=== PATIENT | female | born 1945 | race Caucasian/White ===

== ENCOUNTER 2024-01-22 13:26 | Outpatient (REF) | payer MEDICARE, SELFPAY ==
[2024-01-22 17:50] LABS: MANUAL DIFF FLAG NO
[2024-01-22 17:58] LABS: Basophils Absolute Auto 0.1 X10*3/uL (0.0-0.2); Basophils Percent Auto 1.2 % (0-2); Eosinophils Absolute Auto 0.2 X10*3/uL (0.0-0.4); Hematocrit 42.9 % (37.0-47.0); Hemoglobin 14.2 g/dl (12.0-16.0); Imm Gran Abs Auto 0.01 X10*3/uL (0.00-0.03); Imm Gran Pct Auto 0.2 % (0.0-0.4); Lymphocytes Percent Auto 20.6 % (20-40); Mean Corpuscular HGB Conc 33.1 g/dl (31.0-35.0); Mean Corpuscular Hemoglobin 30.2 pg (27.0-33.0); Mean Corpuscular Volume 91.3 fL (80.0-98.0); Mean Platelet Volume 9.8 fL (9.4-12.3); Monocytes Absolute Auto 0.6 X10*3/uL (0.1-1.2); Monocytes Percent Auto 11.5 % (2-11); Neutrophils Absolute Auto 3.2 x10*3/uL (2.0-8.3); Neutrophils Percent Auto 63.5 % (45-73); Platelet Count 318 X10*3/uL (160-400); Red Cell Distribution Width 13.2 % (11.0-16.0)
[2024-01-22 18:14] LABS: Alanine Aminotransferase 23 U/L (0-31); Albumin Level 3.9 g/dL (3.5-5.0); Alkaline Phosphatase 57 U/L (39-117); Anion Gap 12 (12-20); Aspartate Amino Transferase 28 U/L (5-31); Bilirubin Total 0.6 mg/dL (0.0-1.0); Blood Urea Nitrogen 21 mg/dL (9-16); Calcium 9.3 mg/dL (8.4-10.2); Carbon Dioxide 26 mmol/L (22-29); Chloride 106 mmol/L (96-108); Estimated Glomerular Filt Rate > 60; Glucose Random 80 mg/dL (60-115); Iron 70 mcg/dL (30-160); Percent Iron Saturation 33 % (15-50); Potassium 4.1 mmol/L (3.3-5.1); Sodium 140 mmol/L (135-145); Total Iron Binding Capacity 210 mcg/dL (228-428); Total Protein 6.4 g/dL (6.5-8.0); Unsaturated Iron Binding 140 ug/dL
[2024-01-22 18:29] LABS: Ferritin 133 ng/mL (10-250); Thyroid Stimulating Hormone 1.37 uIU/mL (0.32-4.0); Vitamin D 25-OH Total 48.4 ng/mL (>30)
[2024-01-22 18:42] LABS: Folate 9.3 ng/mL (> or = 4.0); Vitamin B12 1450 pg/mL (200-900)
== END 2024-01-22 13:27 | disposition home or self-care (01) ==
LOC: HO.WFDLDS 13:26
PROVIDERS: Visit Provider Internal Medicine
DX: E77.8 Other disorders of glycoprotein metabolism (principal); E56.9 Vitamin deficiency, unspecified; L65.9 Nonscarring hair loss, unspecified
CPT/HCPCS: 36415; 80053; 82306; 82607; 82728; 82746; 83540; 84443; 85025

== ENCOUNTER → 2024-05-05 09:50 | Outpatient (BNVA) | payer MEDICARE, SELFPAY | PROVIDERS: PCP Internal Medicine; Visit Provider Internal Medicine | DX: Z00.00 Encounter for general adult medical examination without abnormal findings (principal) | CPT/HCPCS: 96127; 99212 ==

== ENCOUNTER 2025-05-11 14:07 | Outpatient (AMB) | payer MEDICARE, SELFPAY ==
--- OUTSIDE RECORDS SUMMARY | 2024-10-17 07:35 | XMS_ITS | Continuity of Care Document ---
Author Organization [facility] Address [address] [facility] [address] [place] [address] Care Team Providers Care Web Content Editor Name Role Phone Samir Kingston OD Unavailable Unavailable Allergies, Adverse Reactions, Alerts Substance Reaction Status Criticality No Known Allergies Active No Inform ation Medications Medication Instructions Dosage Effective Dates (start - stop) Status Comments montelukast 10 mg tablet take 1 tablet by oral route every day in the evening 10 MG - Active Flonase Allergy Relief 50 mcg/actuation nasal spray,suspension spray 1 - 2 spray by intranasal route every day in each nostril as needed 50-100 MCG - Active omeprazole 40 mg capsule,delayed release take 1 capsule by oral route every day before a meal 40 MG - Active butalbital-acetaminop hen-caffeine 50 mg-300 mg-40 mg capsule take 1 - 2 capsule by oral route every 4 hours as needed not to exceed 6 capsules per 24hrs 1.00-2.00 capsule - Active CoQ-10 100 mg capsule take 1 capsule by oral route every day 1 capsule - Active dicyclomine 20 mg tablet take 1 tablet by oral route 2 times every day 20 MG - Active estradiol 0.025 mg/24 hr semiweekly transdermal patch apply 1 patch by transdermal route 2 times every week cyclically, 3 weeks on and 1 week off 1.00 patch - Active Sivan-C with Bioflavonoids 1,000 mg-200 mg tablet - Active Tumersaid 100 mg-100 mg-100 mg-125 mg tablet - Active magnesium 250 mg tablet take 1 tablet by oral route 2 times every day 1 tablet - Active Lipo-Flavonoid Plus 200 mg-100 mg tablet - Active Probiotic 20 billion cell sprinkle capsule - Active ondansetron HCl 4 mg/5 mL oral solution take 10 milliliter by oral route 2 times every day 8 MG - Active Vitamin D3 25 mcg (1,000 unit) tablet - Active Vitamin B-12 1,000 mcg/mL oral drops - Active Citracal Regular 250 mg calcium-200 unit tablet - Active biotin 10,000 mcg disintegrating tablet - Active atorvastatin 40 mg tablet take 1 tablet by oral route every day 40 MG - Active Procedures Procedure Date Compre oph exam est pt / REFRACTION Visual Test Ophth Serv: Med Exam; Comp Est 24 REFRACTION Ophth Serv: Med Exam; Comp Est 23 REFRACTION Visual [facility] [place] No MD [facility] [place] Ophth Serv: Med Exam; Comp Est REFRACTION Postop F/u Visit [facility] 1 No Charge REFRACTION Same Day PostOp Visit CAT[facility]ACT SURG W/IOL, 1 STAGE Anes- Eye; Lens Surg FACILITY No Event On Discharge IOL Master Offic/outpt E&m Estab Mod-wv 2 21 Postop F/u Visit [facility] 1 No Charge REFRACTION Same Day PostOp Visit FACILITY No Event On Discharge Determ Refractive State Post Op 021 CATARACT SURG W/IOL, 1 STAGE Anes- Eye; Lens Surg Surgery Pre-Payment Offic/outpt E&m Estab Minor 10 21 Offic/outpt E&m Estab Mod-hi 2 21 REFRACTION IOL Master Ophth Serv: Med Exam; Comp New 20 IOL Master REFRACTION Advance Directives Directive Yes / No Effective Date File Name No Information Encounters Encounter Description Practice Location Reason(s) For Visit Diagnoses Date Provider Providers Copied on Encounter [facility] [address], [place], [address] [place] [address] [facility] Blurry vision (chief complaint) PresbyopiaPresenc e of intraocular lensPosterior vitreous detachment of both eyesDry eye syndrome of bilateral lacrimal glands 5 Goodyear OD Samir. [facility] [address], [place], [place], [id number] , . tel:[phone] Referring Provider: Samir Turner, [address] [place] [address], [place], [address] . tel:[phone] [facility] [place] [address], [place], [place], [id number], [facility] Blurry Vision (chief complaint) PresbyopiaPresenc e of intraocular lensPosterior vitreous detachment of both eyesDry eye syndrome of bilateral lacrimal glands 4 Vashti OD Samir. [facility] [address] [address], [place], [place], [id number] , . tel:[phone] Referring Provider: Samir Turner, [facility] [address] [address], [place], [address] . tel:[phone] [facility] [place] [address], [place], [place], [id number], [facility] blurry vision (chief complaint) Dry eye syndrome of bilateral lacrimal glandsPosterior vitreous detachment of both eyesPresence of intraocular lensPresbyopia 3 Goodyear OD Samir. [facility] [address] [address], [place], [place], [id number] , . tel:[phone] Referring Provider: Samir Turner, [address] [facility] [address], [place], [address] . tel:[phone] [facility] [place] [address], [place], [address] [place] [address], [facility] [place] Dermatochalasis of right upper eyelidDermatochal asis of left upper eyelid Aug- 2 Goodyear OD Samir. [facility] [address], [place], [address] [place] [address] , . tel: [phone] Referring Provider: Samir Kingston OD A, [facility] [address], [place], [address] [place] [address] . tel:[phone] [facility] [place] [facility], [facility] [address] [address], [place], [address] [place] [address], [facility] [place] Dermatochalasis of left upper eyelidDermatochal asis of right upper eyelid 2 Goodyear OD Samir. [facility] [address], [place], [address] [place] [address]. tel: [phone] Referring Provider: Samir Kingston OD A, [facility] [address], [place], [address] [place] [address] . tel:[phone] [facility] [place], [address] [place] [address], [place], [id number], [facility] flashes of light (chief complaint) Posterior vitreous detachment of both eyesPresence of intraocular lensPresbyopiaDer matochalasis of right upper eyelidDermatochal asis of left upper eyelid 2 Goodyear OD Samir. [address] [place] [address] [address], [place], [address] [place] [address] , . tel: [phone] Referring Provider: Kailey Morocho, [facility] [address], [place], [address] . tel:[phone] [facility] [address], [place], [address] [place] [address], [facility] Final Post op (chief complaint) Presence of intraocular lensPresbyopiaDer matochalasis of both upper eyelids 1 Vashti OD Samir. [facility] [address], [place], [address] [place] [address] , . tel:[phone] Referring Provider: Kailey Morocho, [address], [place], [address] [place] [address] . tel:[phone] [facility] [place], [address], [place], [address] [place] [address], [place] [facility] [place] [place] Presence of intraocular lens Sep- 1 Vashti OD Samir. [address], [place], [address] [place] [address] , . tel:[phone] [facility] [place], [address], [place], [address] [place] [address], tel:[phone] [facility] No Information 1 [facility] [place]. [address], [place], [address] [place] [address] , . tel:[phone] Referring Provider: Kailey Morocho, [address], [place], [address] [place] [address] . tel:[phone] [facility] [place], [address], [place], [address] [place] [address], [facility] No Information 1 Maite Bonner. [address], [place], [address] [place] [address] , . tel:[phone] Referring Provider: Kailey Morocho, [address], [place], [address] [place] [address] . tel:[phone] [facility] [place], [address], [place], [address] [place] [address], [place] [facility] [place] [place] No Information 1 Maite Bonner. [address], [place], [address] [place] [address] , . tel:[phone] Referring Provider: Kailey Morocho, [address], [place], [address] [place] [address] . tel:[phone] Offic/outpt E&m Estab Mod-hi 2 [facility] [place], [address] [place] [address] [address], [place], [address] [place] [address] [facility] Glare (chief complaint) Post Op (chief complaint) Nuclear sclerosis cataract of right eyePresence of intraocular lensPresbyopia Apr-2 1 Goodyear OD Samir. [address] [place] [address] [address], [place], [address] [place] [address]. tel:[phone] Referring Provider: Kailey Morocho, [facility] [address] [facility] [address], [place], [address] [place] [address] . tel:[phone] [facility] [place] [address], [place], [address] [place] [address], [facility] [place] Presence of intraocular lens Apr-0 1 Vashti OD Samir. [address] [place] [address] [address], [place], [address] [place] [address]. tel:[phone] [facility] [address], [place], [address] [place] [address], tel:[phone] [facility] No Information [address] [facility] [place]. [facility], [facility] [address], [place], [address] [place] [address]. tel:[phone] Referring Provider: Kailey Morocho, [address] [place] [address] [address], [place], [address] [place] [address] . tel:[phone] [facility] [place] [address] [facility] [address], [place], [address] [place] [address] [facility] [place] No Information 0 1 Maite Bonner. [address] [place] [address] [address], [place], [address] [place] [address]. tel:[phone] Referring Provider: Kailey Morocho, [address] [place] [address] [address], [place], [address] [place] [address] . tel:[phone] [facility] [place] [address] [facility] [address], [place], [address] [place] [address], [facility] No Information Apr-0 1 Maite Bonner. [address], [place], [address] [place] [address] , . tel:[phone] Referring Provider: Kailey Morocho, [facility] [address], [place], [address] [place] [address] . tel:[phone] [facility] [place], [address] [facility] [address], [place], [address] [place] [address], [address] [facility] No Information Apr-0 1 Maite Bonner. [facility] [address] [facility] [address], [place], [address] [place] [address] , . tel:[phone] Referring Provider: Kailey Morocho, [address] [place] [address] , [place], [address] [place] [address] . tel:[phone] Offic/outpt E&m Estab Minor [facility], [facility] , [place], [address] [place] [address], [facility] [place] Pre-Op Clearance (chief complaint) Migraine HAs (chief complaint) GERD (chief complaint) Hyperlipid emia (chief complaint) Encounter for other preprocedural examinationAge-re lated nuclear cataract, bilateral Apr-0 1 Lesley Gould. [address], [place], [address] [place] [address] , . tel:[phone] Referring Provider: Kailey Morocho, [facility] [address], [place], [address] [place] [address] . tel:[phone] Offic/outpt E&m Estab Mod-hi [address] [place] [address] [facility] , [place], [address] [place] [address] [facility] Decreased Vision (chief complaint) Glare (chief complaint) Age-related nuclear cataract, bilateralPresbyop ia Mar-2 1 Maite Bonner. [facility] [address], [place], [place], [id number] , . tel:[phone] Referring Provider: Kailey Morocho, [address], [place], [address] . tel:[phone] [facility] [place], [address], [place], [id number], [facility] glare (chief complaint) blurred vision (chief complaint) Age-related nuclear cataract, bilateralPresbyop ia Maite Bonner. [address], [place], [place], [id number] , . tel:[phone] Referring Provider: Kailey Morocho, [address] [facility], [place], [address] . tel:[phone] Family History Family Member Type Diagnosis Age At Onset Mother Problem (finding) glaucoma Brother Problem (finding) degenerative disorder o f macula Payers Payer name Insurance type Covered alliance party ID Authoriza tion(s) Medicare [id number] BCBS Commercial [id number] Social History Type Description Quantity Date Captured Comments Alcohol Use Details Caffeine Use Details Unknown Tobacco Use Status Current non-smoker Smoking Status Never smoker Non-Smoking Tobacco Use Details : No Details Available : No Details Available Sex Female Chief Complaint And Reason For Visit From encounter dated '10/17/2024 12:35'. Blurry vision (chief complaint). Description: The patient presents for blurry vision in both eyes over the past year. Patient states that she finds herself using her readers more often to see fine print. Reason For Referral Reason For Referral No Information Plan Of Treatment Date Type Action Status Referral Ordered: Candi Wade -Family Medicine (related to Posterior vitreous detachment of both eyes) ordered Referral Ordered: Candi Wade -Family Medicine (related to Dry eye syndrome of bilateral lacrimal glands) ordered Referral Referred To: Candi Wade [address] [place], [address] [phone] Ordered: Referrals: Family Medicine. Candi Wade. Assume [...] out on the green. Functional Status Date Functional Assessmen t No Information Instructions Date Instruction Additional Infor evi 1 Year for Complete Dilated Exam Related to Posterior vitreous detachment of both eyes Impression/Plan Related to Poste rior vitreous detachment of both eyes Impression/Plan Related to Dry e ye syndrome of bilateral lacrimal glands Impression/Plan Related to Prese nce of intraocular lens Impression/Plan Related to Presb yopia 1 year for complete dilated exam Related to Dry eye syndrome of bilateral lacrimal glands Impression/Plan Related to Dry e ye syndrome of bilateral lacrimal glands Impression/Plan Related to Prese nce of intraocular lens Impression/Plan Related to Presb yopia Impression/Plan Related to Poste rior vitreous detachment of both eyes Impression/Plan Related to Dry e ye syndrome of bilateral lacrimal glands Impression/Plan Related to Presb yopia Impression/Plan Related to Prese nce of intraocular lens Impression/Plan Related to Poste rior vitreous detachment of both eyes Return to clinic in [address] Samir Kingston OD for Annual dilated fundus exam Related to Presence of intraocular lens Impression/Plan Related to Poste rior vitreous detachment of both eyes Impression/Plan 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 Related to Nucle ar sclerosis cataract of right eye Impression/Plan Related to Presb yopia Impression/Plan Related to Prese nce of intraocular lens Impression/Plan Related to Nucle ar sclerosis cataract of right eye cataract sx OS Related to Age-r elated nuclear cataract, bilateral Impression/Plan Related to Presb yopia Impression/Plan Related to Age-r elated nuclear cataract, bilateral Impression/Plan Related to Presb yopia Impression/Plan Related to Age-r elated nuclear cataract, bilateral Assessments Type Assessment Date assessment Presbyopia impression Refraction obtained assessment Presence of intraocular lens October impression Status: Stable. Centered bilater al assessment Posterior vitreous detachment of both eyes impression Status: Stable. No Holes, No Tea rs bilateral assessment Dry eye syndrome of bilateral la crimal glands impression Status: Stable Patient Care Teams Name Effective Dates (start - stop) Status Members No Information
[2025-05-11 14:19] VITALS: BP 118/66; PULSE 73; RESP 14; O2SAT 97; BMI 26.2
--- NOTE | 2025-05-11 14:19 | A.OFFPC_ITS ---
Vital Signs 05/11/25 14:19 Height 5 ft 1.81 in Weight 142 lb 2 oz BMI 26.2 BP 118/66 Blood Pressure Location Rt brachial Position Sitting Respiration 14 Pulse 73 Pulse Source Pulse Oximeter Pulse Oximetry (%) 97 Oxygen Delivery Method Room Air Intake Visit Reasons: PE Intake Note: Follow up Frozen Pie Maker Required: No Allergies No Known Allergies Allergy (Verified 05/11/25 14:22) Tobacco use date assessed: 05/11/25 Fall risk assessment: No Falls in past year Last assessed Fall Risk: 05/11/25 Dental Screening Dental Screen Date: 05/11/25 Did you have a dental visit in the last 12 months?: Yes Did you have a dental problem in the last 6 months where you did not have access to dental care?: No Was dental information given to patient?: Patient has dentist HPI HPI Comments History of Present Illness Details 79 year old female with a past medical h istory of hyperlipidemia, GERD, OA presenting for follow up CV: On lipitor 40mg daily. Intermittent swelling in the legs and orthopnea. She feels like she is retaining water. She eats a low salt diet. GI. Stable on omeprazole 40mg daily OA: [facility] both hands. She has had physical therapy in the past. She has been on nabumetone in the past. Follows with chiropractor. Has a hand specialist in [place]. Headaches are stable on fioricet Preventive Breast MRI 2019 Mammogram-2021 Colonoscopy 2018, Colonoscopy/EGD-Feb 2025 Hysterectomy 1986. On estrace, gurwinder BEARD CONSTITUTIONAL: Denies weight loss, fever and chills. HEENT: Denies changes in vision and hearing. RESPIRATORY: Denies SOB and cough. CV: Denies palpitations and CP GI: Denies abdominal pain, nausea, vomiting and diarrhea. : Denies dysuria and urinary frequency. MSK: Denies new myalgia and joint pain. SKIN: Denies rash and pruritus. NEUROLOGICAL: Denies headache PSYCHIATRIC: Denies recent changes in mood. PHYSICAL EXAM: GENERAL: Alert and oriented x 3. NAD EYES: EOMI. Anicteric. HENT: Moist mucous membranes. No scleral icterus. No cervical lymphadenopathy. LUNGS: Clear to auscultation bilaterally. CARDIOVASCULAR: Regular rate and rhythm. No murmur. No JVD. ABDOMEN: Soft, non-tender +bs EXTREMITIES: No edema. Non-tender. SKIN: No rashes or lesions. Warm. NEUROLOGIC: No focal neurological deficits. CN II-XII grossly intact PSYCHIATRIC: Cooperative. Appropriate mood and affect [facility] Family History (Updated 05/05/24 @ 10:42 by Madonna Hazel CMA) Brother HTN (hypertension) Mother Osteoporosis Social History (Updated 05/05/24 @ 10:43 by Madonna Hazel CMA) Housing: House Alcohol intake: current Patient Tobacco Use Status: Never used Tobacco e-Cigarette/Vaping Use: Never Used Second Hand Smoke Exposure: No service: No Current occupational status: retired Cognitive needs: No Hearing needs: No Vision needs: No Questionnaire PHQ-9 Over the last 2 weeks, how often have you been bothered by any of the following problems? 1. Little interest or pleasure in doing things: not at all 2. Feeling down, depressed, or hopeless: not at all 3. Trouble falling or staying asleep, or sleeping too much: not at all 4. Feeling tired or having little energy: not at all 5. Poor appetite or overeating: not at all 6. Feeling bad about yourself - or that you are a failure or have let yourself or your family down: not at all 7. Trouble concentrating on things, such as reading the newspaper or watching television: not at all 8. Moving or speaking so slowly that other people could have noticed. Or the opposite - being so fidgety or restless that you have been moving around a lot more than usual: not at all 9. Thoughts that you would be better off or of hurting yourself in some way: not at all Total score: 0 Depression Screening Interpretation: Negative Depression Screening Done: Yes 90200 - PHQ-9 Billing: Yes Source: Developed by Drs. Luis Ron, Cayla Devine, Ramos Patel and colleagues, with an educational marcelle from [employer]. Thrive Questionnaire Date Thrive assessed: 05/05/24 I am a: Patient What is your living situation today?: I have a steady place to live Within the past 12 months, did the food you bought not last and you didn't have the money to get more?: Never true Within the past 12 months, did you worry whether your food would run out before you got money to buy more?: Never true Do you have trouble paying for medicines?: No Do you have trouble getting transportation to medical appointments?: No Do you have trouble paying your heating and electricity bill?: No Do you have trouble taking care of your child, family member or friend?: No Do you have trouble with day-to-day activities such as bathing, preparing meals, shopping, managing finances, etc.?: No Are you currently unemployed and looking for a job?: No Are you interested in more education?: No Please select the resources that you would like help with: None Currently or been in a relationship where the following occur: No concerns reported THRIVE Score: 0 AUDIT C Alcohol Use Questionnaire (AUDIT-C) 1. How often do you have a drink containing alcohol?: Monthly or less 2. How many drinks containing alcohol do you have on a typical day when you are drinking?: 1 or 2 3. How often do you have six or more drinks on one occasion?: Never Total Score: 1 KENDRICK-7 AMB Questionnaire KENDRICK-7 Date KENDRICK - 7 assessed: 05/05/24 Feeling nervous, anxious, or on edge: 0 = Not at all Not being able to stop or control worryin = Not at all Worrying too much about different things: 0 = Not at all Trouble relaxin = Not at all Being so restless that it is hard to sit still: 0 = Not at all Becoming easily annoyed or irritable: 0 = Not at all Feeling afraid as if something awful might happen: 0 = Not at all Total KENDRICK-7 score (0-4 normal; 5-9 mild; 10-14 moderate; 15-21 severe): 0 Source: Developed by Drs. Luis Ron, Cayla Devine, Ramos Patel and colleagues, with an educational marcelle from [employer]. Physical exam (Primary Care) Vital Signs: Last Vital Signs Pulse 73 05/11/25 14:19 Resp 14 05/11/25 14:19 BP 118/66 05/11/25 14:19 Pulse Ox 97 05/11/25 14:19 Oxygen Delivery Method Room Air 05/11/25 14:19 BMI result Body Mass Index 26.2 Tobacco/Smoking Status: Tobacco use Status Tobacco use date assessed 05/11/25 05/11/25 14:26 Patient Tobacco Use Status Never used Tobacco 05/11/25 14:26 e-Cigarette/Vaping Use Never Used 05/11/25 14:26 PHQ-9: PHQ-9 Score PHQ-9: Total score 0 05/11/25 14:31 Depression Screening Interpretation: Negative Thrive Assessment: Date of Thrive Assessment Date Thrive assessed 05/05/24 05/11/25 14:26 Currently or been in a relationship where the following occur: No concerns reported Coding Level of Care Code Est Pt Level 4 (48672) Diagnoses Edema, unspecified type R60.9 Edema type: unspecified Orthopnea R06.01 Other headache syndrome G44.89 Headache type: other headache syndrome Primary osteoarthritis involving multiple joints M15.0 Osteoarthritis type: primary Additional Codes PHQ-9 - 63427 - PHQ-9 Billing: Yes ([id number]) Assessment & Plan Assessment & Plan (1) Edema: Code(s): R60.9 - Edema, unspecified Category: Medical Qualifiers: Edema type: unspecified Qualified Code(s): R60.9 - Edema, unspecified (2) Orthopnea: Code(s): R06.01 - Orthopnea Category: Medical (3) Headache: Code(s): R51.9 - Headache, unspecified Category: Medical Qualifiers: Headache type: other headache syndrome Qualified Code(s): G44.89 - Other headache syndrome (4) Osteoarthritis, multiple sites: Code(s): M15.9 - Polyosteoarthritis, unspecified Category: Medical Qualifiers: Osteoarthritis type: primary Qualified Code(s): M15.0 - Primary generalized (osteo)arthritis Plan LE edema, orthopnea. Seems euvolemic today. Furosemide x 5 days then as needed. Echo ordered Monitor lipids Headaches are stable Arthritis is stable Orders: Orders CA echo transthoracic complete 05/11/25 R06.01 - Orthopnea, R60.9 - Edema, unspecified Medications: New furosemide (Lasix) Take 1 tab oral once daily for 5 days then as needed for swelling 20 mg PO DAILY PRN 90 tabs 1RF edema
--- OUTSIDE RECORDS SUMMARY | 2025-05-11 17:31 | XMS_ITS ---
Author Name [facility] Organization Unknown Care Team Organization Name Specialty Phone Email Start Date End [facility] GEETA CONNORS Primary Care 11/09/2021 022
--- OUTSIDE RECORDS SUMMARY | 2025-05-11 17:31 | XMS_ITS | Clinical Summary ---
Author Organization [facility] Address [address] [place] [address] Care Team Providers Care Barge Pilot Name Role Phone Fatimah Lo MD Primary Care Provider [phone] Medications Medication Sig Dispensed Refills Start Date End Date Status atorvastatin (LIPITOR) tablet 40 mg Take 40 mg by mouth daily. 0 Active Biotin (BIOTIN 5000) 5 MG CAPS Take by mouth. 0 Active butalbital-acetaminoph en-caffeine (FIORICET, ESGIC) 50-325-40 MG per tablet Take 1 tablet by mouth every 4 (four) hours as needed for pain. 0 Active fluticasone (FLONASE) 50 MCG/ACT nasal spray spray/apply 1 spray in each nostril daily. 0 Active omeprazole (PRILOSEC) 40 MG capsule Take 40 mg by mouth daily. 0 Active Ascorbic Acid (VITAMIN C) 1000 MG tablet Take 1,000 mg by mouth daily. 0 Active Active Problems Problem Noted Date Diagnosed Date Abnormal PET of right lung 01/23/2018 Anxiety 01/23/2018 Fibrocystic disease of breast, right 01/23/2018 Gastroesophageal reflux disease 01/23/2018 Mixed hyperlipidemia 01/23/2018 Weight loss 01/23/2018 Atypical migraine 01/23/2018 Social History Tobacco Use Types Packs/Day Years Used Date Smoking Tobacco: Never Smokeless Tobacco: Former Alcohol Use Standard Drinks/Week Comments Yes 0 (1 standard drink = 0.6 oz pur e alcohol) ocassionally Sex and Gender Information Value Date Recorded Sex Assigned at Not on file Gender Identity Not on file Sexual Orientation Not on file Last Filed Vital Signs Vital Sign Reading Time Taken Comments Blood Pressure 109/32 05/29/2018 9:23 AM EST Pulse 69 05/29/2018 9:23 AM EST Temperature 36.8 C (98.3 F) 05/29/2018 9:23 AM EST Respiratory Rate - - Oxygen Saturation - - Inhaled Oxygen Concentration - - Weight 62.6 kg (138 lb) 05/29/2018 9:23 AM EST Height 156.5 cm (5' 1.6 ) 05/29/2018 9:23 AM EST Body Mass Index 25.57 05/29/2018 9:23 AM EST Plan of Treatment Health Maintenance Due Date Last Done Comments COVID-19 Vaccine (#1) 1945 Depression Screening 1955 Preventative Health Evaluation 1961 DTap / Tdap / Td (1 - Tdap) 1962 Shingrix-Zoster Vaccine (1 of 2) 1993 Fall Risk Assessment 2008 Osteoporosis Screening (DEXA Scan) 2008 Pneumococcal Vaccine (1 of 1 - PCV) 2008 RSV Adult > 60+ Yrs or Pregn ant (1 - 1-dose 75+ series) 2018 Influenza Vaccine (#1) 2025 Hepatitis B Vaccines Aged Out No long er eligible based on patient's age to complete this topic RSV Ped < 20 months Aged Out No longe r eligible based on patient's age to complete this topic Care Teams Barge Pilot Relationship Specialty Start Date End Date Fatimah Lo MD [address] [place] [address] PCP - General Family Medicine 01/17/18
--- OUTSIDE RECORDS SUMMARY | 2025-05-11 17:31 | XMS_ITS | Clinical Summary ---
Author Organization [facility] Address [address] [place] [id number] Care Team Providers Care Home Teaching [employer] 7 [employer] 8 Teacher Name Role Phone Fatimah Lo MD Primary Care Provider [phone] Kayla Wilkins MD Unavailable [phone] Medications atorvastatin (LIPITOR) 40 MG tablet Take 40 mg by mouth. Active OMEprazole (PriLOSEC) 40 MG capsule 10/02/2020 Active Biotin 5 MG Cap Take by mouth. Active butalbital-aceta minophen-caffein e (FioriCET, ESGIC) 50-325-40 mg tablet Take 1 tablet by mouth every 4 (four) hours as needed. Active ascorbic acid (VITAMIN C) 1000 MG tablet Take 1,000 mg by mouth. Active estradiol (CLIMARA) 0.05 MG/24HR patch Place 1 patch on the skin once a week. Active Active Problems No known active problems Family History Medical History Relation Name Comments Cancer Brother Cancer Father Heart disease Sister Relation Name Status Comments Brother Father Sister Social History Tobacco Use Types Packs/Day Years Used Date Smoking Tobacco: Never Assessed Alcohol Use Standard Drinks/Week Comments Yes 0 (1 standard drink = 0.6 oz pur e alcohol) rare Comments Unknown Sex and Gender Information Value Date Recorded Sex Assigned at Not on file Legal Sex Female 2:52 PM EDT Gender Identity Female 01/03/2021 9:55 PM EDT Sexual Orientation Heterosexual (straight) 01/03 9:55 PM EDT Last Filed Vital Signs Vital Sign Reading Time Taken Comments Blood Pressure 124/47 11/18/2020 2:39 PM EDT Pulse 66 11/18/2020 2:39 PM EDT Temperature - - Respiratory Rate - - Oxygen Saturation - - Inhaled Oxygen Concentration - - Weight 61.2 kg (135 lb) 11/18/2020 2:39 PM EDT Height 158.8 cm (5' 2.5 ) 11/18/2020 2:39 PM EDT Body Mass Index 24.3 11/18/2020 2:39 PM EDT Plan of Treatment Health Maintenance Due Date Last Done Comments Advance Care Planning 1945 DTaP/Tdap/Td Vaccines (1 - Tdap) 1962 Pneumococcal Vaccines 50+ (1 of 1 - PCV) 1993 Zoster (Shingles) Vaccine (1 of 2) 1993 DXA Bone Density (Females,Ag es 65 and older) 2008 RSV Vaccine 50 years and old er and Patients (1 - 1-dose 75+ series) 2018 Influenza Vaccine 01/09/2025 COVID-19 Vaccine ( - 2023-2 5 season) 2025 Hepatitis B Vaccines Aged Out No long er eligible based on patient's age to complete this topic Insurance MEDICARE PART A & B [facility] on file [employer] Care Teams Home Teaching Grades 7 And 8 Teacher Relationship Specialty Start Date End Date Fatimah Lo MD [address] [place] [address] PCP - General 02/20/20 Kayla Wilkins MD [address] [facility] [address] [place] [address] Referring Provider 02/20/20
== END 2025-05-11 14:50 | disposition home or self-care (01) ==
LOC: HO.HMCFM 14:07
PROVIDERS: PCP Internal Medicine; Visit Provider Internal Medicine
DX: R60.9 Edema, unspecified (principal); R06.01 Orthopnea; G44.89 Other headache syndrome; M15.0 Primary generalized (osteo)arthritis

== ENCOUNTER → 2025-05-11 14:07 | Outpatient (BNVA) | payer MEDICARE, SELFPAY | PROVIDERS: PCP Internal Medicine; Visit Provider Internal Medicine | DX: R60.9 Edema, unspecified (principal); R06.01 Orthopnea; G44.89 Other headache syndrome; M15.0 Primary generalized (osteo)arthritis; K21.9 Gastro-esophageal reflux disease without esophagitis; Z79.899 Other long term (current) drug therapy; Z13.31 Encounter for screening for depression | CPT/HCPCS: 96127; 99212 ==

== ENCOUNTER → 2025-05-15 11:03 | Outpatient (REF) | payer MEDICARE, SELFPAY ==
--- NOTE | 2025-05-15 11:06 | CA_ITS ---
Transthoracic Echocardiogram Patient (Last, First, Middle): Cayla Heck, Gender: Female Date of : 1945 Age: 80 Procedure Date: 05/15/2025 Procedure Type: Transthoracic Echocardiogram Location: OP Height: 157.48 cm Weight: 62.14 kg BSA: 1.63 m2 Heart Rate: bpm BP: 124 / 72 mmHg Director Of Casino Marketing: TO Referring MD: Marianne Mariano MD Symptoms: R06.01 - Orthopnea Study Quality: Adequate ECG Rhythm: Sinus Conclusions: - The left ventricular systolic function is normal. The calculated ejection fraction is 65% by biplane method. - The basal inferior segment is akinetic. - No obvious valvular pathology seen on this study. Findings Left Ventricle Normal left ventricular cavity size. There is normal left ventricular wall thickness. The left ventricular systolic function is normal. The calculated ejection fraction is 65% by biplane method. Diastolic function is normal for age. Wall Motion Rest Echo Findings The basal inferior segment is akinetic. Right Ventricle Normal right ventricular cavity size and systolic function. Atria Both atria are normal in size. Aortic Valve There is a normal trileaflet aortic valve. There is no aortic valve stenosis. There is trace (trivial) aortic valve regurgitation. Mitral Valve The mitral valve appears normal. There is trace mitral valve regurgitation. There is no mitral valve stenosis. Pulmonic Valve There is trace pulmonic valve regurgitation. Tricuspid Valve Normal tricuspid valve structure. There is mild tricuspid valve regurgitation. There is no evidence of pulmonary hypertension. Great Vessels The asc aorta and aortic arch are normal in size. Venous The inferior vena cava is normal in size and collapses greater than 50% with inspiration. Pericardium/Pleural There is no evidence of pericardial effusion. Prior Study Comparison No prior study available for comparison. Recommendations, Care & Conclusions No obvious valvular pathology seen on this study. Measurements 2D Linear Measurements IVSd: 0.80 0.6-0.9/0.6-1.0 cm LVIDd: 3.92 3.9-5.3/4.2-5.9 cm LVIDd Index: 2.40 2.4-3.2/2.2-3.1 cm/m2 LVIDs: 2.52 2.0-3.6 cm LVPWd: 0.71 0.7-1.1 cm LA Diam: 2.90 2.7-3.8/3.0-4.0 cm LAIDs Index: 1.78 1.5-2.3 cm/m2 LV Mass: 104.14 67-162/88-224 g LV Mass Index: 63.89 43-95/49-115 g/m2 LVOT Diam: 2.00 3.0+(-)1.3 cm 2D Systolic Function EF 4C: 63.60 >55% EF 2C: 65.50 >55% EF BiP: 64.60 >55% Mitral Valve MV Pk E: 0.57 MV PK A: 0.57 MV Decel Time: 204.00 E/A: 1.00 E'Lateral: 7.40 E'Medial: 5.55 E/E' Med: 10.30 E/E' Lat: 7.80 PHT: 60.00 MVA PHT: 3.67 Decel [place]: 2.81 Aortic Valve AoV Pk Dev[place]: 1.25 AoV Mn Devonte: 0.87 AoV VTI: 0.27 AoV Pk Grad: 6.00 Aov Mn Grad: 3.00 VANE Cont.VTI: 2.94 AI Pk Dev[place]: 3.87 AI [place]: 1.94 LVOT LVOT Pk [place]: 1.02 LVOT Mn [place]onte: 0.70 LVOT VTI: 0.25 LVOT Pk Grad: 4.00 LVOT Mn Grad: 2.00 LVOT Diam: 2.00 LVOT Area: 3.14 Diastolic Function MV Pk E: 0.57 MV Pk A: 0.57 E/A: 1.00 E'Medial: 5.55 E/E' Med: 10.30 E' Laterial: 7.40 E/E' Lat: 7.80 Right Ventricle TAPSE (mm): 20.60 TVS' Dev[place]: 11.40 Tricuspid Valve TR Pk Devonte: 2.28 TR Pk Grad: 21.00 RA Press: 3.00 RVSP: 24.00 Great Vessels Aorta Sinus of Valsalva: 3.52 2.0-3.[address] [place]: 2.81 1.7-3.4 cm Ao Asc: 3.50 2.1-3.4 cm Ao Arch: 2.70 Updated in Other Vendor System with Status of Final Baldo Ledesma MD electronically signed on 05/16/2025 1:05:40 PM with status of Final
== END ==
LOC: HO.CARD 11:03
PROVIDERS: PCP Internal Medicine; Visit Provider Internal Medicine
DX: R06.01 Orthopnea (principal); R60.9 Edema, unspecified
CPT/HCPCS: 93306

== ENCOUNTER → 2025-05-15 11:06 | Outpatient (BNV) | payer MEDICARE, SELFPAY | PROVIDERS: PCP Internal Medicine; Visit Provider Internal Medicine | DX: I51.89 Other ill-defined heart diseases (principal); I36.1 Nonrheumatic tricuspid (valve) insufficiency | CPT/HCPCS: 93306 ==

== ENCOUNTER 2025-05-23 12:55 | Emergency (ER) | payer MEDICARE, SELFPAY ==
--- OUTSIDE RECORDS SUMMARY | 2023-12-03 09:00 | XMS_ITS ---
Author Organization [facility] Address [address] [facility] [address] [place] [address] Care Team Providers Care Record Label Internship Name Role Phone Ulices IRAHETA MD, SIMONE Primary Care Provider Unavailab Kayla Ugarte Unavailable [phone] Allergies Allergen (clinical drug ingredient) Drug/Non Drug Allergy documented on EMR Reaction Allergy Type Onset Date Status Penicillin Yeast Drug Allergy Active Substance with sulfonamide structure and antibacterial mechanism of action (substance) Sulfa Antibiotics Unknown Drug Allergy Active REASON FOR VISIT HR MEDICARE PE Encounters Encounter Location Date Provider Diagnosis [facility] [address] [address] 12/03/2023 Kayla Wilkins Plan Of Treatment Next Appt Details Provider Name:Kayla zeng, 12/28/2025 02:20:00 PM, [address] [place] [address], [facility] [address], [place], [address], Progress Notes * ALLEY SCHWARZDOB:1945 ( 80 yo F)Acc No.[id number]:12/03/2023 PROGRESS NOTES Patient: ALLEY MCGHEE Appointment Provider: Johnny Wilkins M.D. :1945 A ge:78 Y S ex:Female Date:12/03/2023 Address:[address] [place], [place] [id number] Pcp:SIMONE IRAHETA MD Subjective: * Chief Complaints: [...] bleeding, Mammographic heterogeneous density, bilateral breasts. * Practice Manager History: G ravida/ Para 3 /3. S [...] Electronic signature of Salvatore Wilkins MD on 05/23/2025 at 04:45 PM EST Sign off status: Pending * Appointment Provider: Johnny Wilkins M.D. Date: 0 12/03/2023 Generated for Maycol sharma/Lia/eTraheemsmitting on: 07/24/2024 04:45 PM EST
--- OUTSIDE RECORDS SUMMARY | 2024-06-26 12:00 | XMS_ITS ---
Author Organization [facility] Address [address] [place] [address] Care Team Providers Care Process Control Board Operator Name Role Phone MD Candi Cheung Primary Care Provide r [phone] REASON FOR VISIT Awe Social History Sex Assigned At : Social History Observation Description Sex Assigned At Female Encounters Encounter Location Date Provider Diagnosis [facility] [address] [place] [address] 06/26/2024 Candi Graham Plan Of Treatment Next Appt Details Provider Name:Candi quintero, 11/02/2025 01:30:00 PM, [address] [facility] [address], [address], Progress Notes * Cayla HECK DDOB:1945 (80 yo F)Acc No.[id number]:06/26/2024 Progress Notes Patient: Heron Cayla JIMENEZ Provider: Johnny Graham MD :1945 A ge:79 Y S ex:Female Date:06/26/2024 [facility] [address] [facility] Subjective: * Chief Complaints: * 1 . Awe. * Medical History: Objective: * Vitals: Assessment: Plan: * Treatment: Care Plan: * Problems: * Images: Billing Information: * Visit Code: * Procedure Codes: Care Plan Details* * Electronic signature of MD Johnny Graham on 05/23/2025 at 04:45 PM EST Sign off status: Pending * Provider: Johnny Graham MD Date: 0 06/26/2024 Generated for Maycol sharma/Lia/Daysi on: 1 07/24/2024 04:45 PM EST
--- OUTSIDE RECORDS SUMMARY | 2024-06-28 04:00 | XMS_ITS ---
Author Organization [facility] Address [address] [facility] [address] [place] [address] Care Team Providers Care Sewing Machine Bobbin Winder Name Role Phone Eulalio Chavarria Unavailable [phone] Migration, Provider Unavailable Unavailable REASON FOR VISIT EMR-Harvey Encounters Encounter Location Date Provider Diagnosis [facility] [address] [address] 06/28/2024 Provider Migration Plan Of Treatment No Information Progress Notes * CHONG JASMINADALLASDOB:1945 ( 80 yo F)Acc No.[id number]:06/28/2024 Patient: Heron JACQUELINEUlices ALLEY :1945 A ge:79 Y S ex:Female Phone: Address:[address] [place] [address], [phone] Subjective: * Chief Complaints: * E MR-Harvey * * Date:
--- OUTSIDE RECORDS SUMMARY | 2024-06-29 04:00 | XMS_ITS ---
Author Organization [facility] Address [address] [facility] [address] [place] [address] Care Team Providers Care Patternmaker Hand Name Role Phone Eulalio Chavarria Unavailable [phone] Migration, Provider Unavailable Unavailable REASON FOR VISIT EMR-Harvey Encounters Encounter Location Date Provider Diagnosis [facility] [address] [address] 06/29/2024 Provider Migration Plan Of Treatment No Information Progress Notes * CHONG JASMINADALLASDOB:1945 ( 80 yo F)Acc No.[id number]:06/29/2024 Patient: Heron JACQUELINEJASMINA ElenaET :1945 A ge:79 Y S ex:Female Phone: Address:[address] [place] [address], [address] Subjective: * Chief Complaints: * E MR-Harvey * * Date:
--- OUTSIDE RECORDS SUMMARY | 2024-10-17 07:35 | XMS_ITS | Continuity of Care Document ---
Author Organization [facility] Address [address] [facility] [address] [place] [address] Care Team Providers Care Gsa Coordinator Name Role Phone Samir Kingston OD Unavailable [...] For Visit Diagnoses Date Provider Encounter Disposition [address], [id number], [facility] Blurry vision (chief complaint) PresbyopiaPrese nce of intraocular lensPosterior vitreous detachment of both eyesDry eye syndrome of bilateral lacrimal glands 5 Vashti OD Samir. [facility] [address], [id number] , . tel:+ [phone] [address], [id number], [facility] Blurry Vision (chief complaint) PresbyopiaPrese nce of intraocular lensPosterior vitreous detachment of both eyesDry eye syndrome of bilateral lacrimal glands 4 Vashti OD Samir. [address], [id number] , . tel:+ [phone] [address], [id number], [facility] blurry vision (chief complaint) Dry eye syndrome of bilateral lacrimal glandsPosterior vitreous detachment of both eyesPresence of intraocular lensPresbyopia 3 [place] OD Samir. [address], [place], [place], [id number] , [place]. tel: [phone] [facility] [place], [address] [facility] [address], [place], [place], [id number], [place] [facility] [place] [place] Dermatochalasis of right upper eyelidDermatoch alasis of left upper eyelid Aug- 2 [place] OD Samir. [address], [place], [place], [id number] , [place]. tel: [phone] [facility] [place], [address] [place] [address] [address], [place], [place], [id number], [place] [facility] [place] [place] Dermatochalasis of left upper eyelidDermatoch alasis of right upper eyelid Fe 2 Vashti OD Samir. [address], [place], [place], [id number] , [place]. tel: [phone] [facility] [place], [address] [place] [address] [address], [place], [place], [id number], [place] [facility] [place] [facility] flashes of light (chief complaint) Posterior vitreous detachment of both eyesPresence of intraocular lensPresbyopiaD ermatochalasis of right upper eyelidDermatoch alasis of left upper eyelid 2 [place] OD Samir. [address], [place], [place], [id number] , [place]. tel: [phone] [facility] [place], [facility] [address], [place], [place], [id number], [place] [facility] [place] [facility] Final Post op (chief complaint) Presence of intraocular lensPresbyopiaD ermatochalasis of both upper eyelids 1 [place] OD Samir. [address], [place], [place], [id number] , [place]. tel: [phone] [facility] [place], [address] [place] [address] [address], [place], [id number], [place] [facility] [place] [place] Presence of intraocular lens Apr-2 1 Vashti OD Samir. [address], [place], [place], [id number] , [place]. tel: [phone] [facility] [place], [address] [facility] [address], [place], [place], [id number], tel:[phone] [facility] No Information Sep-[address] [facility] [place]. [address], [place], [place], [id number] , [place]. tel: [phone] [facility] [place], [address] [facility] [address], [place], [place], [id number], [facility] No Information Apr-2 1 Maite Bonner. [address], [place], [place], [id number] , . tel: [phone] [facility] [place], [facility] [address], [place], [place], [id number], [place] [facility] [place] [place] No Information Sep-2 1 Maite Bonner. [address], [place], [place], [id number] , . tel: [phone] [facility] [place], [address] [facility] [address], [place], [id number], [place] [facility] [place] [facility] Glare (chief complaint) Post Op (chief complaint) Nuclear sclerosis cataract of right eyePresence of intraocular lensPresbyopia Apr-2 1 Vashti OD Samir. [address], [place], [place], [id number] , [place]. tel: [phone] [facility] [place], [address] [facility] [address], [place], [place], [id number], [place] [facility] [place] [place] Presence of intraocular lens Apr-0 1 [place] OD Samir. [address], [place], [place], [address] , [place]. tel: [phone] [facility] [place], [address] [facility] [address], [place], [place], [id number], [place] tel:[phone] [facility] No Information Apr-0 8- [address] [facility] [place]. [address], [place], [place], [id number] , . tel: [phone] [facility] [place], [address] [facility] [address], [place], [id number], [place] [facility] [place] No Information Apr-0 8 1 Maite Bonner. [address], [place], [place], [address] , . tel: [phone] [facility] [place], [address] [facility] [address], [place], [place], [id number], [facility] No Information Apr-0 8 1 Maite Bonner. [address] [facility] [address], [place], [place], [id number] , . tel: [phone] [facility] [place], [address] [facility] [address], [place], [id number], [place] 01 [employer] No Information Apr-0 1 Maite Bonner. [address] [facility] [address], [place], [place], [address] , [place]. tel: [phone] [facility] [place], [address] [facility] [address], [place], [address] [place] [address], [place] [facility] [place] [place] Pre-Op Clearance (chief complaint) Migraine HAs (chief complaint) GERD (chief complaint) Hyperlipid emia (chief complaint) Encounter for other preprocedural examinationAge- related nuclear cataract, bilateral Apr-0 1 Lesley Gould. [address], [place], [place], [address] , [place]. tel: [phone] [facility] [place], [address] [facility] [address], [place], [place], [id number], [place] [facility] [place] [facility] Decreased Vision (chief complaint) Glare (chief complaint) Age-related nuclear cataract, bilateralPresby opia Mar-2 1 Maite Bonner. [address], [place], [place], [address] , . tel: [phone] [facility] [place], [address], [place], [place], [address], [place] [facility] [place] [facility] glare (chief complaint) blurred vision (chief complaint) Age-related nuclear cataract, bilateralPresby opia Nov-0 0 Maite Bonner. [address], [place], [place], [id number] , [place]. tel: [phone] Family History Family Member Type Diagnosis Age At Onset Mother Problem (finding) glaucoma Brother Problem (finding) degenerative disorder o f macula Payers Payer name Insurance type Identifiers Authorization(s) Com ments Medicare MB new ID: [id number] Name: Coverage Status Eligibility Check on: [id number] nship to Subscriber: selfPayer Address: [address], [place], [address], [employer] Phone: [phone] [employer] Commercial SB590 BL iber ID: [id number] Name: Coverage Status Eligibility Check on: [id number] nship to Subscriber: selfPayer Address: [address], [place], [address], [employer] Phone: [phone] Social History Type Description Quantity Date Captured [...] ordered Referral Referred To: Candi Wade [address] [place], [phone] Ordered: Referrals: Family Medicine. Candi Wade. Assume [...] improved and the colors are much brighter. Pre-Op Clearance Migraine HAs GERD Hyperlipidemia Glare The patient comp lains of glare [...] syndrome of bilateral lacrimal glands Impression/Plan - Vi treous and retina appear [...] escription given. Related to Presbyopia Impression/Plan - Co ntinue to monitor. Related [...] to Presence of intraocular lens Impression/Plan - Co ntinue to monitor on annual basis, sooner as needed. Related to Presence of intraocular lens Impression/Plan - Pa tient to return for belph VF with possible referral to Dr. Castro. Related to Dermatochalasis of left upper eyelid Impression/Plan - Pa tient to return for belph VF with possible referral to Dr. Castro. Related to Dermatochalasis of right upper eyelid Impression/Plan - MRX given. Rel ated to Presbyopia Impression/Plan - Si gns and symptoms of retinal detachment reviewed in detail with patient. Patient instructed to call right away with any change in vision or increase of flashes and/or floaters. Related to Posterior vitreous detachment of both eyes Return in [address] Kingston for complete Related to Presbyopia Impression/Plan Related to Prese nce of intraocular lens Impression/Plan Related to [place] tochalasis of both upper eyelids Impression/Plan Related to Presb yopia As Scheduled. Related to Nucle ar sclerosis [...] to Age-related nuclear cataract, bilateral Impression/Plan - Pa brennan elects to monitor for now as she is leaving for [place] in 2 weeks. Patient would like to come back in June when she is back in [place]. Patient advised to call sooner with any changes in vision. Related to Age-related nuclear cataract, bilateral Impression/Plan - monitor annual ly Related to Presbyopia Assessments Type Assessment Date assessment Presbyopia impression Refraction obtained assessment Presence of intraocular lens October impression Status: Stable. Centered bilater al assessment Posterior vitreous detachment of both eyes impression Status: Stable. No Holes, No Tea rs bilateral assessment Dry eye syndrome of bilateral la crimal glands impression Status: Stable
--- NOTE | ~2025-05-23 | XR_ITS ---
CLINICAL HISTORY: chest pain 1 view chest x-ray. Comparison: None Findings: No consolidation or effusion. Cardiac and mediastinal contours appear unremarkable. Bones unremarkable. Impression: 1. No acute pulmonary disease. This document has been electronically signed by: Joselito Stallworth MD on 05/23/2025 14:10:51
--- NOTE | 2025-05-23 12:57 | ECG_ITS ---
Test Reason : CP Blood Pressure : */* mmHG Vent. Rate : 81 BPM Atrial Rate : 81 BPM P-R Int : 148 ms QRS Dur : 68 ms QT Int : 380 ms P-R-T Axes : 48 -18 44 degrees QTcB Int : 441 ms Normal sinus rhythm Low voltage QRS Inferior infarct , age undetermined Abnormal ECG No previous ECGs available Referred By: Generic ED Physician Electronically Signed By: ROSANNA PALACIOS MD
[2025-05-23 13:27] VITALS: BP 123/57; PULSE 88; RESP 16; TEMP 36.7; O2SAT 99; BMI 25.8
--- NOTE | 2025-05-23 13:33 | ED_ITS ---
HPI - Chest Pain General Chief Complaint: Chest Pain Stated Complaint: CP Time Seen by Provider: 05/23/25 13:32 History of Present Illness HPI narrative: Patient is an 80-year-old female presents today with having chest pain. The chest pain radiates front to the back sometimes worse with deep breath. Mild shortness of breath there is no nausea no vomiting the pain is somewhat sharp. Patient has recently traveled back from [place]. There is no history of cancer. Patient thinks it is like a rock in her chest. Has been constantly there since 15:00. It is worse with certain position. Improved with lying flat. It is not worse with ambulation. There is no fever no chills. Patient got an echo done recently. Patient from home. No worsening leg swelling. No diaphoresis. Related Data Home Medications ?Medication ?Instructions ?Recorded ?Confirmed ascorbic acid (vitamin C) 1,000 mg 1 g PO Q6H 05/05/24 capsule biotin 1,000 mcg chewable tablet 1,000 mcg PO DAILY wddsjbuyux-dbfwhxajmhigf-yidnonso 1 cap PO Q8H PRN 50 mg-300 mg-40 mg capsule calcium carbonate 600 mg PO DAILY 05/05/24 coenzyme Q10 200 mg/gram oral mg PO 05/05/24 powder (H2Q CoQ10) cranberry extract 425 mg capsule 425 mg PO DAILY 05/05 estradiol 0.0375 mg/24 hr transdermal 05/05/24 semiweekly transdermal patch fluticasone propionate 50 1 spray intranasal BID 05/05 mcg/actuation nasal spray,suspension (Flonase Allergy Relief) magnesium oxide 500 mg capsule 500 mg PO DAILY 4 pyridoxine (vitamin B6) PO 05/05/24 tretinoin 0.025 % topical cream appl topical BEDTIME 1 07/05/23 tumeric curcumin .Route 05/05/24 cholecalciferol (vitamin D3) 25 25 mcg PO DAILY mcg (1,000 unit) capsule Previous Rx's ?Medication ?Instructions ?Recorded furosemide 20 mg tablet (Lasix) 20 mg PO DAILY PRN alyse ma #90 tabs 05/11/25 Allergies Allergy/AdvReac Type Severity Reaction Status Date / Time No Known Allergies Allergy Verified 05/23/25 13:32 Review of Systems 2 Review of Systems: Positive chest pain No fever no chills no diaphoresis PMFSH Past Medical History Attestation statement: The following information was validated with the patient. Family History Family History Brother HTN (hypertension) Mother Osteoporosis Social History Social History Housing: House Alcohol intake: current Patient Tobacco Use Status: Never used Tobacco e-Cigarette/Vaping Use: Never Used Second Hand Smoke Exposure: No Advance Directives: No Advance Directives Information Provided: No Do you have a plan to hurt others: No Plan service: No Current occupational status: retired Cognitive needs: No Hearing needs: No Vision needs: No Physical Exam 2 Exam: Exam: Appearance: Alert. Oriented X3. No acute distress. Eyes: Pupils equal, round and reactive to light. ENT: Pharynx normal. Neck: Normal inspection. Neck supple. No lymph nodes noted. No crepitus CVS: Normal heart rate and rhythm. Pulses normal. Normal S1 and S2 Respiratory: No respiratory distress. Breath sounds normal. No Wheezing. No rales Abdomen: Soft and nontender. No rigidity. No distention. good BS x4 Skin: Skin warm and dry. Normal skin color. Normal skin turgor. Extremities: No lower extremity edema. Neurovascular intact to all extremities. No Lacerations. No Rash Neuro: Oriented X 3. No motor deficit. No sensory deficit. Moving all extermities. No slurred speech Vital Signs: Vital Signs: Last Vital Signs Temp 98.1 F 05/23/25 16:00 Pulse 75 05/23/25 16:00 Resp 16 05/23/25 16:00 BP 116/53 L 05/23/25 16:00 Pulse Ox 97 05/23/25 16:00 O2 Del Method Room Air 05/23/25 16:00 BMI result Body Mass Index 25.8 Course Course Course Narrative: This is a RME preformed in triage by Adela Santana PA-C. Date: 05/23/25 , time 135 pm. Patient presents with chest pain. ? Onset: Began last night. ? Location: Mid-back with radiation to both shoulders and right side; patient also reports chest discomfort she initially attributed to ?indigestion.? ? Quality/Character: Described as a pressure/rock-like sensation that worsens with bending over or swallowing liquids (?hurts going through?). ? Severity: Rates pain 4/10. ? Aggravating factors: Bending over; drinking liquids; general movement. ? Relieving factors: Temporary, mild relief after taking metocarbamol at home overnight. ? Associated symptoms: Shortness of breath, frequent indigestion. Denies nausea. No prior episodes of pain of this nature. ? Pertinent cardiac history: Recent transthoracic echocardiogram ordered by Dr. Travis for positional dyspnea (?feeling suffocated when lying on back?). Patient reports portal message noting ?signs of congestive heart failure ? one part of the heart operating slower.? Hospital called yesterday to schedule a nuclear stress test (set for 06/25). ? Stressors: Significant emotional stress yesterday. ? Medications tried: Metocarbamol overnight with partial, transient relief. ? Pharmacy: [facility]. Review of Systems: Constitutional: No fever discussed. Cardiovascular: Chest/back pain with radiation to shoulders; shortness of breath. Gastrointestinal: Frequent indigestion; pain with swallowing liquids. No nausea. Respiratory: Positional shortness of breath when lying supine. ECHO on 05/15/2025: The left ventricular systolic function is normal. The calculated ejection fraction is 65% by biplane method. - The basal inferior segment is akinetic. - No obvious valvular pathology seen on this study. Work UP: cardiac/abd labs, EKG, CXR PE: no distress Will defer full ROS and PE to treating provider. Patient will continued to be monitored in the interim. Medical Decision Making Medical Decision Making MDM Narrative: My interpretation patient's EKG showed a sinus rhythm heart rate is 70 UT QRS QTC normal no acute ST segment elevation. My interpretation patient's chest x- ray is grossly negative. No pneumonia no pneumothorax. Patient's troponin x2 sets are negative. In the setting of atypical history for ACS. In the setting of negative troponin x2 sets. Unlikely secondary have ACS. Patient's BNP is 200. This is normal for someone who is 80 years old. No evidence for congestive heart failure. Able to lie flat without any issues. Patient's white count is normal. Chest x-ray showed no pneumonia no pneumothorax. Patient's D- dimer is negative. In the setting of low risk unlikely to have PE. Will discharge patient home close follow-up advised. Differential Diagnosis Differential Diagnoses: The differential diagnosis associated with the presentation includes ACS, pneumonia, pneumothorax Lab Data MDM Lab Attestation statement: I reviewed the patient's lab results. 05/23/25 13:43 05/23/25 13:43 Labs: Lab Results 05/23/25 05/23/25 Range/Units 13:43 18:15 WBC 9.0 (4.8-10.8) X10*3/uL RBC 5.07 (4.20-5.50) X10*6/uL Hgb 15.0 (12.0-16.0) g/dl Hct 45.2 (37.0-47.0) % MCV 89.2 (80.0-98.0) fL MCH 29.6 (27.0-33.0) pg MCHC 33.2 (31.0-35.0) g/dl RDW 13.2 (11.0-16.0) % Plt Count 266 (160-400) X10*3/uL MPV 9.4 (9.4-12.3) fL Immature Gran % (Auto) 0.3 (0.0-0.4) % Neut % (Auto) 81.1 H (45-73) % Lymph % (Auto) 9.0 L (20-40) % [place] % (Auto) 8.2 (2-11) % Eos % (Auto) 1.0 (0-4) % Baso % (Auto) 0.4 (0-2) % Lymph # (Auto) 0.8 L (1.2-4.9) X10*3/uL [place] # (Auto) 0.7 (0.1-1.2) X10*3/uL Eos # (Auto) 0.1 (0.0-0.4) X10*3/uL Baso # (Auto) 0.0 (0.0-0.2) X10*3/uL Abs Immat Gran (auto) 0.03 (0.00-0.03) X10*3/uL Absolute Neuts (auto) 7.3 (2.0-8.3) x10*3/uL Absolute Nucleated RBC 0.000 (0.0-0.012) X10*3/uL Nucleated RBC % (auto) 0.0 (0.0-0.2) /100WBC D-Dimer High Sensitivty < 150 NG/ML Sodium 139 (135-145) mmol/L Potassium 4.1 (3.3-5.1) mmol/L Chloride 105 (96-108) mmol/L Carbon Dioxide 28 (22-29) mmol/L Anion Gap 10 L (12-20) BUN 17 H (9-16) mg/dL Creatinine 0.73 (0.5-1.4) mg/dL Estim Creat Clear Calc 52.1 Estimated GFR > 60 Random Glucose 101 (60-115) mg/dL Calcium 9.6 (8.4-10.2) mg/dL Magnesium 2.0 (1.6-2.6) mg/dL Total Bilirubin 0.8 (0.0-1.0) mg/dL AST 30 (5-31) U/L ALT 33 H (0-31) U/L Alkaline Phosphatase 79 (39-117) U/L Troponin I High Sens < 2.7 2.7 (<3.5-17.0) ng/L NT-Pro-B Natriuret Pep 202.7 (<300) pg/mL Total Protein 6.8 (6.5-8.0) g/dL Albumin 4.3 (3.5-5.0) g/dL Lipase 32 (8-78) U/L Independent Interpretation I performed an independent interpretation of an: EKG (Sinus heart rate is 80 UT QRS QTC within normal limits there is a Q-wave inferiorly) and Plain X-Ray (My interpretation patient's chest x-ray is grossly negative) Radiology Impression Discussion of test interpretation with radiology: I have reviewed the radiologist's reading. External Record Review External record reviewed: Prior outpatient labs (Patient's outpatient echo reviewed) History of headaches. History of osteoarthritis. History of being on Lasix for edema. Social Determinants Patient?s care significantly limited by Social Determinants of Health including: Problems related to primary support group Discharge Plan Discharge Clinical Impression: Chest pain Patient Disposition: Home, Self-Care Instructions: Chest Pain (ED) Prescriptions: No Action estradiol 0.0375 mg/24 hr patch semiweekly transdermal tretinoin 0.025 % cream topical BEDTIME cranberry extract 425 mg capsule 425 mg PO DAILY Rx Instructions: administer with a meal pyridoxine (vitamin B6) PO magnesium oxide 500 mg capsule 500 mg PO DAILY biotin 1,000 mcg tablet,chewable 1,000 mcg PO DAILY ascorbic acid (vitamin C) 1,000 mg capsule 1 g PO Q6H H2Q CoQ10 200 mg/gram powder PO calcium carbonate 600 mg calcium (1,500 mg) tablet 600 mg PO DAILY tumeric curcumin .Route Rx Instructions: , fluticasone propionate [Flonase Allergy Relief] 50 mcg/actuation spray,suspension 1 spray intranasal BID Rx Instructions: administer into each nostril xwtweklaar-mplpbdmqxcoes-dsqg 50-300-40 mg capsule 1 cap PO Q8H PRN cholecalciferol (vitamin D3) 25 mcg (1,000 unit) capsule 25 mcg PO DAILY furosemide [Lasix] 20 mg tablet 20 mg PO DAILY PRN (Reason: edema) Qty: 90 1RF Rx Instructions: Take 1 tab oral once daily for 5 days then as needed for swelling Referrals: Gilberto Kennedy MD [Physician, Cardiology] - 05/26/25 Print Language: Georgian
[2025-05-23 13:52] LABS: MANUAL DIFF FLAG NO
[2025-05-23 13:56] LABS: Hematocrit 45.2 % (37.0-47.0); Hemoglobin 15.0 g/dl (12.0-16.0); Imm Gran Abs Auto 0.03 X10*3/uL (0.00-0.03); Imm Gran Pct Auto 0.3 % (0.0-0.4); Lymphocytes Absolute Auto 0.8 X10*3/uL (1.2-4.9); Mean Corpuscular HGB Conc 33.2 g/dl (31.0-35.0); Mean Corpuscular Hemoglobin 29.6 pg (27.0-33.0); Mean Corpuscular Volume 89.2 fL (80.0-98.0); NRBC Abs Auto 0.000 X10*3/uL (0.0-0.012); NRBC Pct Auto 0.0 /100WBC (0.0-0.2); Platelet Count 266 X10*3/uL (160-400); Red Blood Count 5.07 X10*6/uL (4.20-5.50); White Blood Count 9.0 X10*3/uL (4.8-10.8)
[2025-05-23 14:05] LABS: D Dimer High Sensitivity < 150 NG/ML
[2025-05-23 14:06] LABS: Alanine Aminotransferase 33 U/L (0-31); Albumin Level 4.3 g/dL (3.5-5.0); Alkaline Phosphatase 79 U/L (39-117); Anion Gap 10 (12-20); Aspartate Amino Transferase 30 U/L (5-31); Blood Urea Nitrogen 17 mg/dL (9-16); Calcium 9.6 mg/dL (8.4-10.2); Carbon Dioxide 28 mmol/L (22-29); Chloride 105 mmol/L (96-108); Creatinine Clr Calc Pharmacy 52.1; Estimated Glomerular Filt Rate > 60; Lipase 32 U/L (8-78); Magnesium 2.0 mg/dL (1.6-2.6); Potassium 4.1 mmol/L (3.3-5.1); Sodium 139 mmol/L (135-145); Total Protein 6.8 g/dL (6.5-8.0)
[2025-05-23 14:13] LABS: NT Pro B Type Natriuretic Pept 202.7 pg/mL (<300)
[2025-05-23 14:14] LABS: Troponin-I High Sensitivity < 2.7 ng/L (<3.5-17.0)
[2025-05-23 16:00] VITALS: BP 116/53; PULSE 75; RESP 16; TEMP 36.7; O2SAT 97
--- OUTSIDE RECORDS SUMMARY | 2025-05-23 16:43 | XMS_ITS | Clinical Summary ---
Author Organization [facility] Address [address] [place] [id number] Phone Care Team Providers Care Systems Integration Advisor Name Role Phone Marianne Mariano MD Primary Care Provider [phone] Allergies Active Allergy Reactions Criticality Noted Date Comments Adhesive 11/17/2024 Medications ondansetron (ZOFRAN) 4 mg tablet 1 tablet (4 mg total). Active butalbital-aceta minophen-caffein e (ESGIC) 50-325-40 mg per capsule TAKE 1 CAPSULE NEEDED, TWICE A DAY (30 DAYS) 10/23/2024 Active atorvastatin (LIPITOR) 40 mg tablet Take 1 tablet (40 mg total) by mouth. 02/02/2017 Active omeprazole (PriLOSEC) [address] capsuleIndicatio ns:Gastroesophag eal reflux disease, unspecified whether esophagitis present,Pharyngo esophageal dysphagia Take 1 capsule (40 mg total) by mouth 2 (two) times a day. 180 each 3 11/17/2024 11/18/19 26 Active Active Problems Problem Noted Date Diagnosed Date Diverticulitis of large inte tracie without perforation or abscess without bleeding 11/17/2024 Assessment & Plan (11/17/2024 4:53 PM EDT): Currently asymptomatic Continue bowel regimen, fiber supplement Patient to reach out to the office as needed symptoms consistent with flare Migraines 11/17/2024 Surgical History Surgery Date Site/Laterality Comments COLONOSCOPY 01/09/2019 - 02/08/2019 sig tics, int rhoids ([address] yr) [address] Armendariz ESOPHAGOGASTRODUODENOSCOPY 01/09/2019 - 02/08/2019 med sized HH, otherwise unremarkable including small bowel and gastric biopsies Dr. Armendariz HYSTERECTOMY INCONTINENCE SURGERY 06/11/2017 - 06/10/2018 OOPHORECTOMY 06/11/2017 - 06/10/2018 Medical History Medical History Date Comments GERD (gastroesophageal reflux disease) 11/13/2017 DX:GERD (gastroesophageal reflux disease) Hyperlipidemia 11/13/2017 DX:Hyperlipidemi a Social History Tobacco Use Types Packs/Day Years Used Date Smoking Tobacco: Never Smokeless Tobacco: Never Interpersonal Safety Answer Date Record ed Physical Abuse Unrecognized value 11/24/2024 Verbal Abuse Unrecognized value 11/24/2024 Comments No Sex and Gender Information Value Date Recorded Sex Assigned at Female 11/24/2024 9:26 AM EDT Legal Sex Female 12:16 PM EST Gender Identity Female 11/24/2024 9:26 AM EDT Sexual Orientation Straight 11/24/2024 9: 26 AM EDT Last Filed Vital Signs Vital Sign Reading Time Taken Comments Blood Pressure 102/48 11/24/2024 10:58 AM EDT Pulse 64 11/24/2024 10:58 AM EDT Temperature 36.8 C (98.2 F) 11/24/2024 10:38 AM EDT Respiratory Rate 15 11/24/2024 10:58 AM EDT Oxygen Saturation 98% 11/24/2024 10:58 AM EDT Inhaled Oxygen Concentration - - Weight 61.2 kg (135 lb) 11/24/2024 10:09 AM EDT Height 157.5 cm (5' 2 ) 11/24/2024 10:09 AM EDT Body Mass Index 24.69 11/24/2024 10:09 AM EDT Plan of Treatment Health Maintenance Due Date Last Done Comments Pneumococcal Vaccine: 50+ Years (1 of 1 - PCV) 1993 Zoster Vaccines (1 of 2) 1993 RSV Immunization Adult Patients (1 - 1-dose 75+ series) 2018 Medicare Annual Wellness Visit 05/20/2022 Osteoporosis Screening (Bone Density Screening) 05/20/2022 Social Influencers of Health Screening 05/20/2022 Depression Screening 06/11/2024 COVID-19 Vaccine (3 - 2024-2 6 season) 2025 12/05/2021, 03/07/2021 Influenza Vaccine (#1) 2025 , 05/17/2012 Falls Risk Assessment 11/24/2025 11/24/2024 Cholesterol Screening (Lipid Panel) 10/07/2029 10/07/2024 DTaP,Tdap,and Td Vaccines (2 - Td or Tdap) 11/28/2031 11/27/2021 HIB Vaccines Aged Out No longer eligi ble based on patient's age to complete this topic HPV Vaccines Aged Out No longer eligi ble based on patient's age to complete this topic Hepatitis A Vaccines Aged Out No long er eligible based on patient's age to complete this topic Hepatitis B Vaccines Aged Out No long er eligible based on patient's age to complete this topic IPV Vaccines Aged Out No longer eligi ble based on patient's age to complete this topic MMR Vaccines Aged Out No longer eligi ble based on patient's age to complete this topic Meningococcal ACWY Vaccine Aged Out N o longer eligible based on patient's age to complete this topic Meningococcal B Vaccine Aged Out No l onger eligible based on patient's age to complete this topic RSV Immunization Patients Under 20 months Aged Out No longer eligible b ased on patient's age to complete this topic Varicella Vaccines Aged Out No longer eligible based on patient's age to complete this topic Insurance MEDICARE [facility] Care Teams Systems Integration Advisor Relationship Specialty Start Date End Date Marianne Mariano MD [address] [place] [address] PCP - General Internal Medicine 03/29/24
--- OUTSIDE RECORDS SUMMARY | 2025-05-23 16:44 | XMS_ITS | Clinical Summary ---
Author Organization [facility] Address [address] [place] [id number] Care Team Providers Care Litigation Attorney Name Role Phone Fatimah Lo MD Primary Care Provider [phone] Kayla Wilkins MD Unavailable [phone] Medications atorvastatin (LIPITOR) 40 MG tablet Take [...] series) 2018 Influenza Vaccine 01/09/2025 COVID-19 Vaccine (1 - 2024-2 6 season) 2025 Hepatitis B Vaccines Aged Out No long er eligible based on patient's age to complete this topic Insurance MEDICARE PART A & B [facility] [place] file [facility] Care Teams Litigation Attorney Relationship Specialty Start Date End Date Fatimah Lo MD [address] [place] [address] PCP - General 02/20/20 Kayla Wilkins MD [address] [facility] [address] [place] [address] Referring Provider 02/20/20
--- OUTSIDE RECORDS SUMMARY | 2025-05-23 16:44 | XMS_ITS | Patient Health Record ---
Author Organization [facility] Address [address], [place] [id number] Support Name Relationship Address Phone GILLIAN WASHINGTON Emergency Contact Unknown Joy GUTIERREZKAYJASMINAET Guarantor Unknown [phone] Reason For Referral No Information Medications Medication SIG (Take, Route, Frequency, Duration) Notes Start Date End Date Status Fluconazole 150 MG 1 DOSE Oral; Duration: 30 Fluconazole 150mg Tablet 1 DOSE #1 (One) tablet(s) 11/08/2018 Active Zofran 4 MG 1 po PRN q4-6hr Oral; Duration: 30 Zofran (Ondansetron HCl) 4mg Tablet 1 po PRN q4-6hr #60 (Sixty) tablet(s) 08/27/2018 Active Omeprazole 40 MG 1 PO QD PRN Oral; Duration: 30 Omeprazole 40mg Capsules, Extended Release 1 PO QD PRN #90 (Ninety) capsule(s) 04/29/2018 Active Atorvastatin Calcium 40 MG 1 TAB PO QD Oral; Duration: 90 Atorvastatin Calcium 40mg Tablet 1 TAB PO QD #90 (Ninety) tablet(s) 04/29/2018 Active Vivelle-Dot 0.0375 mg/24 hr 1 patch hairless area 2 times/week. Transdermal; Duration: 30 *please review for potential update for e-prescription and drug interaction check* Vivelle-Dot (Estradiol) 0.0375mg Transdermal Patch 1 patch hairless area 2 times/week. #8 (Eight) patch(es) 04/29/2018 Active Ciprofloxacin HCl 500 MG 1 PO BID for 10 days Oral; Duration: 30 Ciprofloxacin HCl 500mg Tablet 1 PO BID for 10 days #20 (Twenty) tablet(s) 10/02/2018 Active Fiorinal 50-325-40 MG Take 1 cap(s) by mouth bid prn Oral; Duration: 30 Fiorinal (Butalbital/Aspiri n/Caffeine) Capsules Take 1 cap(s) by mouth bid prn #60 (Sixty) capsule(s) 08/27/2018 Active Problems Problem Type SNOMED Code ICD Code Onset Dates Problem Status W/U Status Risk Notes Problem Hyperlipidemia (05187092) Hyperlipidemia, unspecified (E78.5) 2015 Active confirmed [id number] Problem Chronic migraine without aura, non-refractory (disorder) (513310724931772) Migraine without aura, not intractable, without status migrainosus (G43.009) 2017 Active confirmed [id number]- Problem Aural vertigo (46156157) Aural vertigo, unspecified ear (H81.319) 2017 Active confirmed [id number]- Problem Atherosclerosis of aorta (80793740) Atherosclerosis of aorta (I70.0) 2016 Active confirmed [id number]- Problem Gastro-esophageal reflux disease without esophagitis (726444574) Gastro-esophageal reflux disease without esophagitis (K21.9) 2015 Active confirmed [id number]- Problem 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, 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) 2016 Active confirmed [id number]- Problem Dizziness and giddiness (695545154) Dizziness and giddiness (R42) 2017 Active confirmed [id number]- Problem Laboratory test result abnormal (557704492) Abnormal levels of other serum enzymes (R74.8) 2017 Active confirmed [id number]- Problem Cyst of right ovary (31501958872049933) Unspecified ovarian cyst, right side (N83.201) 2016 Active confirmed [id number]- Problem Hormone replacement therapy (859475523) Hormone replacement therapy (Z79.890) 2015 Active confirmed [id number]- Problem Other specified bacterial foodborne intoxications (A05.8) 2017 Problem resolved confirmed [id number]- Problem Vertigo of central origin (63523471) Vertigo of central origin, unspecified ear (H81.49) 2017 Problem resolved confirmed [id number]- Problem Acute laryngopharyngitis (55925941) Acute laryngopharyngitis (J06.0) 2016 Problem resolved confirmed [id number]- Problem 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) 2017 Problem resolved confirmed [id number]- Problem Pain of left hip joint (finding) (846824262555674) Pain in left hip (M25.552) 2015 Problem resolved confirmed [id number]- Problem Displacement of lumbar intervertebral disc without myelopathy (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) Other intervertebral disc displacement, lumbar region (M51.26) 2016 Problem resolved confirmed [id number]- Problem Lumbar radiculopathy (416439153) Radiculopathy, lumbar region (M54.16) 2016 Problem resolved confirmed [id number]- Problem Urinary tract infectious disease (disorder) (48268822) Urinary tract infection, site not specified (N39.0) 2017 Problem resolved confirmed [id number]- Problem Skin sensation disturbance (83923544) Hypoesthesia of skin (R20.1) 2015 Problem resolved confirmed [id number]- Problem Eruption of skin (282183312) Rash and other nonspecific skin eruption (R21) 2016 Problem resolved confirmed [id number]- Problem Painful micturition (52314055) Painful micturition, unspecified (R30.9) 2017 Problem resolved confirmed [id number]- Problem Solitary pulmonary nodule (801149825) Solitary pulmonary nodule (R91.1) 2017 Problem resolved confirmed [id number]- Problem Abnormal results of liver function studies (114209173) Abnormal results of liver function studies (R94.5) 2016 Problem resolved confirmed [id number]- Problem Adult health examination (796013798) Encounter for general adult medical examination without abnormal findings (Z00.00) 2016 Problem resolved confirmed [id number]- Problem Body mass index 25-29 - overweight (864543909) Body mass index (BMI) 26.0-26.9, adult (Z68.26) 2016 Problem resolved confirmed [id number]- Problem Body mass index 25-29 - overweight (403151688) Body mass index (BMI) 27.0-27.9, adult (Z68.27) 2015 Problem resolved confirmed [id number]- Problem Body mass index 25-29 - overweight (917520462) Body mass index (BMI) 28.0-28.9, adult (Z68.28) 2017 Problem resolved confirmed Harvey-71 7505- Plan Of Treatment No Information Insurance Providers Payer Name Payer Address Payer Phone Subscriber Number Group Number Insured Name Patient Relationship to Insured Coverage Start Date Coverage End Date MEDICARE PART B [address] [address] [place] [address] [phone] [id number] MATTKAY ALLEY Self - patient is the insured [address] [facility] Commercial [address] [place] [address] [id number] CHONG ALLEY Self - patient is the insured MEDICARE PART B [address] [address] [place] [address] [phone] [id number] CHONG ALLEY Self - patient is the insured 6 8
--- OUTSIDE RECORDS SUMMARY | 2025-05-23 16:44 | XMS_ITS | Clinical Summary ---
Author Organization [facility] Prior to 11/08/[address] [place] [address] Care Team Providers Care Vegetable Loader Name Role Phone Fatimah Lo MD Primary Care Provider [phone] Medications Medication Sig Dispensed Refills Start Date [...] age to complete this topic Care Teams Vegetable Loader Relationship Specialty Start Date End Date Fatimah Lo MD [address] [place] [address] PCP - General Family Medicine 01/17/18
--- OUTSIDE RECORDS SUMMARY | 2025-05-23 16:45 | XMS_ITS | Patient Health Record ---
Author Organization [facility] Address [address] [place] [id number] Care Team Providers Care Technical Sales Support Specialist Name Role Phone Ulices IRAHETA MD, SIMONE Primary Care Provider Kayla Rudolph Unavailable [phone] Allergies Allergen (clinical drug ingredient) Drug/Non Drug Allergy documented on EMR Reaction Allergy Type Onset Date Status Penicillin Yeast Drug Allergy Active Substance with sulfonamide structure and antibacterial mechanism of action (substance) Sulfa Antibiotics Unknown Drug Allergy Active Reason For Referral No Information Medications Medication SIG (Take, Route, Frequency, Duration) Notes Start Date End Date Status Vitamin B12 Active Atorvastatin Calcium 40 MG Oral; Duration: 90 Days Active Cranberry/Probiotic - as directed Orally Active Idtdnumnof-JYB-Zzxda ine 50-325-40 MG 1 capsule as needed Orally PRN Active Estradiol 0.1 MG/GM 1 GRAM VAGINA AND VULVA Two times a Week; Duration: 90 days 12/21/2023 Active Vitamin B6 Active Vitamin D3 25 MCG (1000 UT) 1 tablet Orally Once a day; Duration: 30 days Active Ondansetron 4 MG 1 tablet on the tongue and allow to dissolve Orally as needed PRN Active Estradiol Vaginal Cream 0.01% 1 Gram to the affected area Vaginal/Vulva Twice a week; Duration: 90 Days 12/24/2024 Active Vitamin C 1000 MG 2 tablets Orally Once a day Active Citracal Plus - as directed Orally Active Co Q-10 200 MG 1 capsule with a meal Orally Once a day 05/19/2013 Active Omeprazole 40MG 1 ORAL daily; Duration: -3 05/22/2014 Active Magnesium 500 MG 1 tablet with a meal Orally Once a day; Duration: 30 day(s) Active Biotin 49618 MCG 1 tablet Orally Once a day; Duration: 30 day(s) Active Estradiol 0.0375 MG/24HR APPLY 1 PATCH TO SKIN TWICE A WEEK FOR 90 DAYS; Duration: 84 Electronically sent new rx on 12/24/24 for a years supply. Please check Active Social History Tobacco Use: Social History Observation Description Date Details (start date - stop date) Never Smoker NA - NA AUDIT-C (Standard) Question Answer Notes Did you have a drink contain ing alcohol in the past year? Yes How often did you have a dri nk containing alcohol in the past year? Monthly or less (1 point) How many drinks did you have on a typical day when you were drinking in the past year? 1 or 2 drinks (0 point) How often did you have six o r more drinks on one occasion in the past year? Never (0 point) Points 1 Interpretation Negative Tobacco Control (Standard) Question Answer Notes Tobacco use: Nonsmoker Problems Problem Type SNOMED Code ICD Code Onset Dates Problem Status W/U Status Risk Notes Problem Screening for malignant neoplasm of breast (110919598) Encounter for other screening for malignant neoplasm of breast (Z12.39) Active confirmed Problem Postmenopausal atrophic vaginitis (96277372) Postmenopausal atrophic vaginitis (N95.2) Active confirmed Problem Herniation of rectum into vagina (033236434) Rectocele (N81.6) Active confirmed Problem Cystocele (862752081) Cystocele, unspecified (N81.10) Active confirmed Problem Atrophy of vulva (055910477) Atrophy of vulva (N90.5) Active confirmed Problem Hesitancy of micturition (0961429) Hesitancy of micturition (R39.11) Active confirmed Problem Functional urinary incontinence (376153149) Functional urinary incontinence (R39.81) Active confirmed Problem Esophageal reflux (548715584) Esophageal reflux (530.81) Active confirmed Major Problem Diaphragmatic hernia (35861044) Diaphragmatic hernia without mention of obstruction or gangrene (553.3) Active confirmed Other Problem Menopausal symptom (50200607) Symptomatic menopausal or female climacteric states (627.2) Active confirmed Major Problem Gynecological examination normal (907709852803658) Routine gynecological examination (V72.31) Active confirmed Major Problem Screening for malignant neoplasm of colon (988837915) Special screening for malignant neoplasms, colon (V76.51) Active confirmed Major Vital Signs Temperature 97.4 degrees Fahrenheit 12/24/2024 Blood pressure diastolic 62 mm Hg 12/24/2024 Height 62 in 12/24/2024 Blood pressure systolic 128 mm Hg 12/24/2024 Weight 136 lbs 12/24/2024 BMI 24.87 kg/m2 12/24/2024 Encounters Encounter Location Date Provider Diagnosis Total [address] [place] [address] 12/24/2024 Kayla Wilkins Encounter for gynecological examination (general) (routine) without abnormal findings Z01.419 ; Encounter for screening mammogram for malignant neoplasm of breast Z12.31 ; Other specified disorders of bone density and structure, multiple sites M85.89 ; Hormone replacement therapy Z79.890 ; Postmenopausal atrophic vaginitis N95.2 ; Cystocele, unspecified N81.10 ; Rectocele N81.6 and Dense breasts, unspecified R92.30 Assessments Encounter Date Diagnosis (ICD Code) Assessment Notes Treatment Notes Treatment Clinical Notes Section Notes 12/24/2024 Encounter for gynecological examination (general) (routine) without abnormal findings (ICD-10 - Z01.419) NO MORE PAP TESTS. 12/24/2024 Encounter for screening mammogram for malignant neoplasm of breast (ICD-10 - Z12.31) REGULAR MAMMOGRAMS AND SBE'S WERE RECOMMENDED. 12/24/2024 Other specified disorders of bone density and structure, multiple sites (ICD-10 - M85.89) DISCUSSED OSTEOPENIA AND ITS IMPACT ON HER HEALTH. ADEQUATE CALCIUM AND VIT D. WEIGHT BEARING EXERCISES. REPEAT BMD THIS YEAR. 12/24/2024 Hormone replacement therapy (ICD-10 - Z79.890) DISCUSSED BENEFITS AND RISKS OF ERT SPECIALLY AT HER AGE. SHE UNDERSTANDS AND ACCEPTS RISKS. SHE HAS NO CONTRAINDICATIO NS. RX FOR ESTRADIOL PATCH 0.0375 MG WAS GIVEN. 12/24/2024 Postmenopausal atrophic vaginitis (ICD-10 - N95.2) CONITNUE ESTRADIOL CREAM. 12/24/2024 Cystocele, unspecified (ICD-10 - N81.10) DISCUSSED CYSTORECTOCELE. SHE CAN LIVE WITH THIS THE SYMPTOMS OF THIS DX. 12/24/2024 Rectocele (ICD-10 - N81.6) 12/24/2024 Dense breasts, unspecified (ICD-10 - R92.30) DISCUSSED DENSE BREASTS ON MAMMOGRAM AND ITS IMPLICATIONS. 3D MAMMOGRAMS WERE RECOMMENDED. Plan Of Treatment Pending Test Test Name Order Date MAMMOGRAM, SCREENING 06/13/2018 MAMMOGRAM, SCREENING 06/16/2019 MAMMOGRAM, SCREENING 06/17/2020 MAMMOGRAM, SCREENING 11/24/2021 MAMMOGRAM, SCREENING 11/29/2022 MAMMOGRAM, SCREENING 12/21/2023 MAMMOGRAM, SCREENING 12/24/2024 MAMMOGRAM, SCREENING 06/08/2017 Urinalysis 03/03/2021 CANC ANT-125 10/16/2016 CEA MONOCLONAL 10/16/2016 COMPLETE URINALYSIS 11/24/2022 HCG PLUS BETA 10/16/2016 URINE CULTURE 11/24/2022 BONE DENSITY 12/24/2024 BONE DENSITY 06/17/2020 BONE DENSITY 12/21/2023 MM Digital Mammo Screening 12/24/2024 MM Digital Mammo Screening 12/21/2023 MM Digital Mammo Screening 11/29/2022 MM Digital Mammo Screening 06/13/2018 MM Digital Mammo Screening 11/24/2021 MM Digital Mammo Screening 06/17/2020 MM Digital Mammo Screening 06/16/2019 MM Digital Mammo Screening 06/08/2017 Bilateral Digital Diagnostic Mammo 12/20 BILAT DIAGNOSTIC BREAST ULTRASOUND 12/20 Next Appt Details Provider Name:Kayla Muniz karri, 12/28/2025 02:20:00 PM, [address] [place] [address], [address], [place], [address], Insurance Providers Payer Name Payer Address Payer Phone Subscriber Number Group Number Insured Name Patient Relationship to Insured Coverage Start Date Coverage End Date MEDICARE [address] [place] [id number] [place] Self - patient is the insured MED[employer] [address] [place] [address] [id number] Self - patient is the insured Medical (General) History Medical History History ICD Code Menopausal and female climacteric states N95.1 Diaphragmatic hernia without obstruction or gangrene K44.9 Dyspareunia N94.1 Gastro-esophageal reflux disease without esophagitis K21.9 Hormone replacement therapy (postmenopau bianka) Z79.890 Postmenopausal atrophic vaginitis N95.2 Inconclusive mammogram R92.2 Unspecified ovarian cyst, unspecified si de N83.209 Diverticulitis of intestine, part unspecified, without perforation or abscess without bleeding K57.92 Mammographic heterogeneous density, bila teral breasts R92.333 Dense breasts, unspecified R92.30 Disorder of bone density and structure, unspecified M85.9 Functional urinary incontinence R39.81 Unspecified ovarian cyst, right side N83 .201 Unspecified ovarian cyst, left side N83. 202 Incomplete defecation R15.0 Surgical History Surgery Date(Month/Year) Bilateral Tubal Ligation Colonoscopy Foot Surgery Hysterectomy Sacroplexy - Ovaries and Tubes Removed Eyelid Mullerectomy Bilateral Bilateral Cataracts Surgery Hospitalization History Reason Date(Month/Year) See Surgical Hx 3 Vaginal Deliveries
--- OUTSIDE RECORDS SUMMARY | 2025-05-23 16:45 | XMS_ITS | Patient Health Record ---
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 Name Role Phone Pauly Graham MD Candi Primary Care Provide r [phone] Allergies No Known Allergies Reason For Referral No Information Medications Medication SIG (Take, Route, Frequency, Duration) Notes Start Date End Date Status Ciprofloxacin HCl 500 MG 1 tablet Orally every 12 hrs; Duration: 7 days 04/10/2024 Not-Taking Vitamin B6 Active metroNIDAZOLE 500 MG 1 tablet Orally twi ce a day; Duration: 7 days 04/10/2024 Not-Taking Biotin 40434 MCG 1 tablet Orally Once a day Active Vitamin C 1000 MG 3 tablet Orally Once a day Active Topiramate 25 MG 1 tablet Orally Once a day; Duration: 90 days 11/06/2023 Not-Takin g Magnesium 500 MG 1 tablet with a meal Orally Once a day Active Tretinoin Active Turmeric Curcumin 5-1000 MG as directed Orally Active Flonase Allergy Relief 50 MCG/ACT 1 spray in each nostril Nasally Once a day Active CoQ10 200 MG 1 capsule with a curly l Orally Once a day Active Vitamin B12 Active Calcium 600 MG 1 tablet with meals Orally Twice a day Active Vitamin D3 50 MCG (2000 UT) 1 capsule Orally Once a day Active Montelukast Sodium 10 MG 1 tablet Orally Once a day; Duration: 90 days Not-Takin g Cranberry 425 MG as directed Orally Active Ondansetron HCl 4 MG 1 tablet Orally cee ry 6 hours as needed; Duration: 10 days Active Estradiol 0.0375 MG/24HR 1 patch to skin Transdermal Two times a Week Active Ewgfjsmbae-FXDA-Betzabwb 50-325-40 MG 1 capsule as needed Orally twice a day; Duration: 30 days Active Atorvastatin Calcium 40 MG 1 tablet Orally Once a day; Duration: 90 days Active Omeprazole 40 MG 1 capsule 30 minutes before morning meal Orally Once a day; Duration: 90 days Active Immunizations Vaccine Route Administration Date Status Comme nts COVID 19 PFIZER Unknown 07/19/2020 Administered COVID 19 PFIZER Unknown 08/06/2020 Administered Fluzone High Dose IM Intramuscular 04/17/2023 Administered Fluzone High Dose IM Intramuscular 04/10/2024 Administered Pneumococcal conjugate PCV 13 Unknown 04/20/2015 Administered Zoster Unknown 07/15/2010 Administered Social History Tobacco Use: Social History Observation Description Date Details (start date - stop date) Never Smoker NA - NA Sex Assigned At : Social History Observation Description Sex Assigned At Female Tobacco Use/Smoking Question Answer Notes Are you a nonsmoker Alcohol Screen (Audit-C) Question Answer Notes Did you have a [...] (0 point) How often did you have 6 or more drinks on one occasion in the past year? Never (0 point) Points 1 Interpretation Negative Tobacco use other than smoking: Question Answer Notes Are you an other tobacco user? No Tobacco Control (Standard) Question Answer Notes Tobacco use: Nonsmoker AUDIT-C (Standard) Question Answer Notes Did you have a drink contain ing alcohol in the past year? Yes How often did you have six o r more drinks on one occasion in the past year? Never (0 point) How many drinks did you have on a typical day when you were drinking in the past year? 1 or 2 drinks (0 point) How often did you have a dri nk containing alcohol in the past year? Monthly or less (1 point) Points 1 Interpretation Negative Problems Problem Type SNOMED Code ICD Code Onset Dates Problem Status W/U Status Risk Notes Problem Lymphocytopenia (34718682) Lymphocytopenia (D72.810) Active confirmed Problem Hyperlipidemia (76026196) Hyperlipidemia, unspecified (E78.5) Active confirmed Problem Chronic frontal sinusitis (29765338) Chronic frontal sinusitis (J32.1) Active confirmed Problem Gastro-esophageal reflux disease without esophagitis (300161392) Gastro-esophageal reflux disease without esophagitis (K21.9) Active confirmed Problem Menopause (267112225) Menopausal and female climacteric states (N95.1) Active confirmed Problem Headache (78676282) Headache (R51) Active confirmed Problem Osteoarthritis (588955579) 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) Active confirmed Problem Mild intermittent asthma (171406039) Mild intermittent reactive airway disease without complication (J45.20) Active confirmed Problem Diverticulitis (04593056) Diverticulitis (K57.92) Active confirmed Problem Pain in left foot (077554179449737) Left foot pain (M79.672) Active confirmed Problem Solitary nodule of lung (558406515) Lung nodule (R91.1) Active confirmed Problem Hypoproteinemia (0679874) Hypoproteinemia (E77.8) Active confirmed Problem BMI 25-29 - overweight (834315186) Body mass index 25.0-25.9, adult (Z68.25) Active confirmed Problem Migraine without aura (71419271) Migraine without aura and with status migrainosus, not intractable (G43.001) Active confirmed Problem Normal body mass index (89889647) Body mass index (BMI) 24.0-24.9, adult (Z68.24) Problem resolved confirmed Problem Normal body mass index (04573767) BMI 24.0-24.9, adult (Z68.24) Problem resolved confirmed Problem Body mass index 25-29 - overweight (527632215) Body mass index (BMI) of 26.0 to 26.9 in adult (Z68.26) Problem resolved confirmed Vital Signs Heart Rate 67 /min 04/13/2025 Oximetry 95 % 04/13/2025 Blood pressure diastolic 65 mm Hg 04/13/2025 Height 5'2 in 04/13/2025 Blood pressure systolic 134 mm Hg 04/13/2025 Weight 143 lbs 04/13/2025 BMI 26.15 kg/m2 04/13/2025 Encounters Encounter Location Date Provider Diagnosis [facility] [employer] [address] [place] [address] [address] [place] [address] 10/13/2024 Candi Graham Encounter for other screening for malignant neoplasm of breast Z12.39 ; Encounter for general adult medical examination with abnormal findings Z00.01 ; Encounter for screening for malignant neoplasm of colon Z12.11 ; Menopausal and female climacteric states N95.1 ; Encounter for screening for cardiovascular disorders Z13.6 ; Other specified counseling Z71.89 ; Advanced directives, counseling/discussion Z71.89 ; Encounter to discuss test results Z71.2 ; Immunization counseling Z71.85 ; Screening for osteoporosis Z13.820 ; Mild intermittent reactive airway disease without complication J45.20 ; Hyperlipidemia, unspecified E78.5 ; Migraine without aura and with status migrainosus, not intractable G43.001 ; Gastro-esophageal reflux disease without esophagitis K21.9 ; Lymphocytopenia D72.810 and Body mass index 25.0-25.9, adult Z68.25 [facility] [address] [place] [address] 04/13/2025 Candi rGaham Mild intermittent reactive airway disease without complication J45.20 ; Hyperlipidemia, unspecified E78.5 ; Migraine without aura and with status migrainosus, not intractable G43.001 ; Gastro-esophageal reflux disease without esophagitis K21.9 ; Lung nodule R91.1 and BMI 26.0-26.9,adult Z68.26 [facility] [address] [place] [address] 10/23/2024 Candi Graham Migraine without aura and with status migrainosus, not intractable G43.001 [facility] [address] [place] [address] [place] [address] 04/09/2025 Candi Graham Assessments Encounter Date Diagnosis (ICD Code) Assessment Notes Treatment Notes Treatment Clinical Notes Section Notes 10/13/2024 Encounter for other screening for malignant neoplasm of breast (ICD-10 - Z12.39) encounter both hkkf-jb-tvff and lbe-hftn-pj-fa ce: To prepare for the patient, evaluate the patients condition, and management options. Counted for documenting, reviewing records, labs, sending referral, instructions and disposition. Time spent 45 min 10/23/2024 Migraine without aura and with status migrainosus, not intractable (ICD-10 - G43.001) 04/13/2025 Mild intermittent reactive airway disease without complication (ICD-10 - J45.20) stable, no symptoms encounter both moat-dx-gqfc and ort-dkvj-vp-fa ce: To prepare for the patient, evaluate the patients condition, and management options. Counted for documenting, reviewing records, labs, sending referral, instructions and disposition. Time spent 45 min 04/13/2025 Hyperlipidemia, unspecified (ICD-10 - E78.5) RECOMMENDATIONS; EXERCISE, PROPERLY BALANCED DIET CONSISTING OF PREFERABLY ORGANIC FOODS, POTERINS FRIENDLY FATS AND COMPLEX CARBS MEDICATIONS: no changes in current treatment FOLLOW UP: Check lipid panel in 6 months, High Cholesterol: Care Instructions material was published encounter both vmsv-ce-diiv and zlz-aimc-ld-fa ce: To prepare for the patient, evaluate the patients condition, and management options. Counted for documenting, reviewing records, labs, sending referral, instructions and disposition. Time spent 45 min 10/13/2024 Encounter for general adult medical examination with abnormal findings (ICD-10 - Z00.01) Physicians should ask all adults about tobacco use and provide tobacco cessation interventions for those who use tobacco products. Physicians should screen all adults for alcohol misuse and provide behavioral counseling interventions to reduce alcohol misuse in individuals who engage in risky or hazardous drinking. Adults should be screened for elevated body mass index. Patients with obesity should be offered intensive counseling and behavioral interventions to promote sustained weight loss. Women 45 years and older should be screened for dyslipidemia if at increased risk of CHD. Women 50 to 74 years of age should be screened for breast cancer with mammography biennially. Adults 50 to 75 years of age should be screened for colorectal cancer with an FOBT annually, sigmoidoscopy every five years with an FOBT every three years, or colonoscopy every 10 years. Routine screening for ovarian cancer with bimanual examination, transvaginal ultrasonography, or cancer antigen 125 testing is not recommended. Women 65 years and older should be screened for osteoporosis. Adults should be screened for high blood pressure. encounter both ceod-iq-mivs and skp-zrab-vd-fa ce: To prepare for the patient, evaluate the patients condition, and management options. Counted for documenting, reviewing records, labs, sending referral, instructions and disposition. Time spent 45 min 10/13/2024 Encounter for screening for malignant neoplasm of colon (ICD-10 - Z12.11) encounter both aosu-ku-wiqi and uzk-sibq-mb-fa ce: To prepare for the patient, evaluate the patients condition, and management options. Counted for documenting, reviewing records, labs, sending referral, instructions and disposition. Time spent 45 min 10/13/2024 Menopausal and female climacteric states (ICD-10 - N95.1) encounter both dxwg-xb-mkzw and env-ptfp-df-fa ce: To prepare for the patient, evaluate the patients condition, and management options. Counted for documenting, reviewing records, labs, sending referral, instructions and disposition. Time spent 45 min 04/13/2025 Migraine without aura and with status migrainosus, not intractable (ICD-10 - G43.001) Migraine Headache: Care Instructions material was published encounter both aoay-pg-idqe and yvp-wvmo-op-fa ce: To prepare for the patient, evaluate the patients condition, and management options. Counted for documenting, reviewing records, labs, sending referral, instructions and disposition. Time spent 45 min 04/13/2025 Gastro-esophageal reflux disease without esophagitis (ICD-10 - K21.9) Avoid NSAIDs/Aspirin, d/c or limit alcohol, elevate head of bed, avoid spicy foods, weight loss, avoid late meals and tight clothing RECOMMENDATION: No change in current medication regimen, Gastroesophageal Reflux Disease (GERD): Care Instructions material was published encounter both ohcp-ue-zbna and uiv-gtva-tb-fa ce: To prepare for the patient, evaluate the patients condition, and management options. Counted for documenting, reviewing records, labs, sending referral, instructions and disposition. Time spent 45 min 10/13/2024 Encounter for screening for cardiovascular disorders (ICD-10 - Z13.6) encounter both udrq-bi-ghcr and gyu-qwuu-qf-fa ce: To prepare for the patient, evaluate the patients condition, and management options. Counted for documenting, reviewing records, labs, sending referral, instructions and disposition. Time spent 45 min 10/13/2024 Other specified counseling (ICD-10 - Z71.89) encounter both mrnk-cx-xexe and zov-lgai-ys-fa ce: To prepare for the patient, evaluate the patients condition, and management options. Counted for documenting, reviewing records, labs, sending referral, instructions and disposition. Time spent 45 min 04/13/2025 Lung nodule (ICD-10 - R91.1) encounter both znke-zs-lriy and ycz-zzmp-oo-fa ce: To prepare for the patient, evaluate the patients condition, and management options. Counted for documenting, reviewing records, labs, sending referral, instructions and disposition. Time spent 45 min 04/13/2025 BMI 26.0-26.9,adult (ICD-10 - Z68.26) encounter both aqxh-xz-ndbi and wxm-pkkt-zj-fa ce: To prepare for the patient, evaluate the patients condition, and management options. Counted for documenting, reviewing records, labs, sending referral, instructions and disposition. Time spent 45 min 10/13/2024 Advanced directives, counseling/discuss ion (ICD-10 - Z71.89) encounter both fydl-sb-wcmz and ikg-bpyr-tt-fa ce: To prepare for the patient, evaluate the patients condition, and management options. Counted for documenting, reviewing records, labs, sending referral, instructions and disposition. Time spent 45 min 10/13/2024 Encounter to discuss test results (ICD-10 - Z71.2) encounter both iwjd-ov-osap and xoe-ajel-ls-fa ce: To prepare for the patient, evaluate the patients condition, and management options. Counted for documenting, reviewing records, labs, sending referral, instructions and disposition. Time spent 45 min 10/13/2024 Immunization counseling (ICD-10 - Z71.85) encounter both sans-lx-tzyx and xfr-tkse-sj-fa ce: To prepare for the patient, evaluate the patients condition, and management options. Counted for documenting, reviewing records, labs, sending referral, instructions and disposition. Time spent 45 min 10/13/2024 Screening for osteoporosis (ICD-10 - Z13.820) encounter bot h dyxu-xo-fmhv and kkp-dcuv-mf-fa ce: To prepare for the patient, evaluate the patients condition, and management options. Counted for documenting, reviewing records, labs, sending referral, instructions and disposition. Time spent 45 min 10/13/2024 Mild intermittent reactive airway disease without complication (ICD-10 - J45.20) stable, no symptoms encounter both jxzt-gb-theo and ymb-hzgs-qm-fa ce: To prepare for the patient, evaluate the patients condition, and management options. Counted for documenting, reviewing records, labs, sending referral, instructions and disposition. Time spent 45 min 10/13/2024 Hyperlipidemia, unspecified (ICD-10 - E78.5) RECOMMENDATIONS; EXERCISE, PROPERLY BALANCED DIET CONSISTING OF PREFERABLY ORGANIC FOODS, POTERINS FRIENDLY FATS AND COMPLEX CARBS MEDICATIONS: no changes in current treatment FOLLOW UP: Check lipid panel in 6 months, High Cholesterol: Care Instructions material was published encounter both nexs-ok-xdzt and dkb-jvff-ly-fa ce: To prepare for the patient, evaluate the patients condition, and management options. Counted for documenting, reviewing records, labs, sending referral, instructions and disposition. Time spent 45 min 10/13/2024 Migraine without aura and with status migrainosus, not intractable (ICD-10 - G43.001) Migraine Headache: Care Instructions material was published encounter both tcuy-bn-frvy and fwu-hytg-hr-fa ce: To prepare for the patient, evaluate the patients condition, and management options. Counted for documenting, reviewing records, labs, sending referral, instructions and disposition. Time spent 45 min 10/13/2024 Gastro-esophageal reflux disease without esophagitis (ICD-10 - K21.9) Avoid NSAIDs/Aspirin, d/c or limit alcohol, elevate head of bed, avoid spicy foods, weight loss, avoid late meals and tight clothing RECOMMENDATION: No change in current medication regimen, Gastroesophageal Reflux Disease (GERD): Care Instructions material was published encounter both lyql-hj-llbt and air-rkfy-lr-fa ce: To prepare for the patient, evaluate the patients condition, and management options. Counted for documenting, reviewing records, labs, sending referral, instructions and disposition. Time spent 45 min 10/13/2024 Lymphocytopenia (ICD-10 - D72.810) encounter bot h gksj-ch-rdto and dsj-cwrl-jd-fa ce: To prepare for the patient, evaluate the patients condition, and management options. Counted for documenting, reviewing records, labs, sending referral, instructions and disposition. Time spent 45 min 10/13/2024 Body mass index 25.0-25.9, adult (ICD-10 - Z68.25) encounter both uqkd-ld-ttvj and pgh-iunb-uk-fa ce: To prepare for the patient, evaluate the patients condition, and management options. Counted for documenting, reviewing records, labs, sending referral, instructions and disposition. Time spent 45 min Plan Of Treatment Pending Test Test Name Order Date DEXA Hip and Spine 04/17/2023 Electrocardiogram (EKG) 03/20/2022 TSH 04/30/2019 TSH 10/23/2019 CBC With Differential/Platelet 9 CBC With Differential/Platelet 0 Sedimentation Rate-Westergren 04/12/2020 Lyme, Total Ab Test/Reflex 04/12/2020 CCP IgG Antibodies 04/12/2020 Lipid Panel With LDL/HDL Ratio 0 Lipid Panel With LDL/HDL Ratio 9 Comp. Metabolic Panel (14) 04/30/2019 Comp. Metabolic Panel (14) 10/23/2019 Basic Metabolic Panel (8) 04/30/2019 Vitamin B12 and Folate 10/10/2021 Vitamin B12 and Folate 11/06/2023 Vitamin B12 and Folate 04/10/2024 Vitamin B12 and Folate 04/17/2022 Vitamin B12 and Folate 10/17/2022 Vitamin B12 and Folate 04/17/2023 Vitamin B12 and Folate 10/13/2024 Vitamin B12 and Folate 04/13/2025 Vitamin B12 and Folate 01/07/2024 Uric Acid 04/12/2020 Hemoglobin A1c 11/06/2023 Hemoglobin A1c 10/13/2024 Hemoglobin A1c 04/13/2025 Thyroxine (T4) Free, Direct, S 3 Urinalysis, Routine 04/10/2024 Urinalysis, Complete 10/13/2024 Urinalysis, Complete 11/06/2023 Urinalysis, Complete 04/17/2023 Urinalysis, Complete 04/17/2022 Urinalysis, Complete 10/10/2021 Urinalysis, Complete 04/13/2025 TSH 04/13/2025 TSH 01/07/2024 TSH 10/26/2020 TSH 10/10/2021 TSH 04/17/2023 TSH 10/17/2022 TSH 04/17/2022 TSH 04/10/2024 TSH 10/13/2024 TSH 11/06/2023 CBC With Differential/Platelet 4 CBC With Differential/Platelet 4 CBC With Differential/Platelet 2 CBC With Differential/Platelet 3 CBC With Differential/Platelet 3 CBC With Differential/Platelet 2 CBC With Differential/Platelet 1 CBC With Differential/Platelet 4 CBC With Differential/Platelet 5 CBC With Differential/Platelet 5 Vitamin D, 25-Hydroxy 10/13/2024 Vitamin D, 25-Hydroxy 04/13/2025 Albumin/Creatinine Ratio,Urine 5 Albumin/Creatinine Ratio,Urine 2 Albumin/Creatinine Ratio,Urine 3 Albumin/Creatinine Ratio,Urine 3 Albumin/Creatinine Ratio,Urine 5 Albumin/Creatinine Ratio,Urine 4 Albumin/Creatinine Ratio,Urine 4 Lipid Panel With LDL/HDL Ratio 4 Lipid Panel With LDL/HDL Ratio 5 Lipid Panel With LDL/HDL Ratio 3 Lipid Panel With LDL/HDL Ratio 3 Lipid Panel With LDL/HDL Ratio 2 Lipid Panel With LDL/HDL Ratio 2 Lipid Panel With LDL/HDL Ratio 5 Lipid Panel 10/26/2020 Comp. Metabolic Panel (14) 10/26/2020 Comp. Metabolic Panel (14) 01/07/2024 CMP14+eGFR 04/13/2025 CMP14+eGFR 10/13/2024 CMP14+eGFR 10/10/2021 CMP14+eGFR 04/17/2023 CMP14+eGFR 04/17/2022 CMP14+eGFR 10/17/2022 CMP14+eGFR 04/10/2024 CMP14+eGFR 11/06/2023 LIPID PANEL (REFL) 10/15/2019 IRON, TIBC AND FERRITIN PANEL 01/07/2024 RHEUMATOID ARTHRITIS DIAGNOSTIC IDENTRA( TM) PANEL 4 04/12/2020 COMPREHENSIVE METABOLIC PANEL 10/15/2019 CBC (INCLUDES DIFF/PLT) 10/15/2019 C-REACTIVE PROTEIN 04/12/2020 CANDI MULTIPLEX W/REFLEX 11 AB CASCADE 07/2019 TSH 10/15/2019 VITAMIN D,25-OH,TOTAL,IA 01/07/2024 Urinalysis (No Micro) 10/26/2020 ct chest :low dose 04/13/2025 Future Test Test Name Order Date Urinalysis, Complete 04/12/2021 TSH 04/12/2021 CBC With Differential/Platelet 1 Lipid Panel With LDL/HDL Ratio 1 CMP14+eGFR 04/12/2021 Next Appt Details Provider Name:Candi quintero, 11/02/2025 01:30:00 PM, [address], [place], [address], Insurance Providers Payer Name Payer Address Payer Phone Subscriber Number Group Number Insured Name Patient Relationship to Insured Coverage Start Date Coverage End Date Medicare [employer] [address] [place] [phone] [id number] Cayla Heck Self - patient is the insured 8 [facility] [address] [place] [address] [phone] [id number] Leofide Cayla Self - patient is the insured 8 9 Medical (General) History Medical History History ICD Code gastric ulcer: Yes gastroesophageal reflux disease (GERD): Yes depression: No pulmonary nodule: Yes urinary incontinence: No family history of colon cancer: Yes Tetanus vaccine Date: 2008 Influenza vaccine Date: 04/27/2025 Prevnar 13: 04/20/2015 Zoster vaccine Date: : 07/15/2010 covid shot pfizer: 07-19-2020, 08-06-2020 Colonoscopy Date: : January 2019 Mammogram Date:: 05/23/23, 05/23/2024 DEXA Scan Date: 05/08/2021, 05/08/2024 Pap smear: 2018 Eye exam: 10/17/2024 GERD Dyslipidemia Diverticulitis Body mass index (BMI) 24.0-24.9, adult ( resolved 04/17/2022) undefined Body mass index (BMI) of 26.0 to 26.9 in adult (resolved 04/17/2022) BMI 24.0-24.9, adult (resolved ) undefined Surgical History Surgery Date(Month/Year) bladder repair 11/16/2017 OOPHECTOMY 11/16/2017 Cysts removed 11/16/2017 hysterectomy 1987 Hospitalization History Reason Date(Month/Year) see above
--- OUTSIDE RECORDS SUMMARY | 2025-05-23 16:45 | XMS_ITS | Patient Health Record ---
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 Role Phone Eulalio Chavarria Unavailable [phone] Migration, Provider Unavailable Unavailable Reason For Referral No Information Problems Problem Type SNOMED Code ICD Code Onset Dates Problem Status W/U Status Risk Notes Problem Viral screening (599091488) Encounter for screening for other viral diseases (Z11.59) Active confirmed Encounters Encounter Location Date Provider Diagnosis [facility] [address] [address] 06/28/2024 Provider Migration [facility] [address] [address] 06/29/2024 Provider Migration Plan Of Treatment No Information Insurance Providers Payer Name Payer Address Payer Phone Subscriber Number Group Number Insured Name Patient Relationship to Insured Coverage Start Date Coverage End Date [facility] [address] [facility] [place] [address] [id number] ALLEY SCHWARZ Self - patient is the insured 0 3 Medicare Part B [address] [place] [id number] ALLEY SCHWARZ Self - patient is the insured 0 3
--- OUTSIDE RECORDS SUMMARY | 2025-05-23 16:46 | XMS_ITS | Patient Health Record ---
Author Organization [facility] Address [address] [place] [address] Care Team Providers Care Digital Account Coordinator Name Role Phone LIN STOREY Unavailable [phone] Allergies No Known Allergies Reason For Referral No Information Medications Medication SIG (Take, Route, Frequency, Duration) Notes Start Date End Date Status Estradiol 0.0375 MG/24HR Patch Twice Weekly 1 patch to skin Transdermal Two times a Week; Duration: 30 day(s) Active Flonase 50 MCG/ACT Suspension 1 spray in each nostril Nasally Twice a day; Duration: 30 day(s) Active vitamins/supplements po daily Active Erythromycin 5 MG/GM Ointment 1 application to upper eyelids Ophthalmic Twice a day; Duration: 10 day(s) Active Promethazine HCl 25 MG Tablet 1 tablet as needed Orally every 8 hrs prn nausea/vomit Active Tylenol with Codeine #3 300-30 MG Tablet 1 tablet as needed Orally every 4 hours prn pain Active Cephalexin 500 MG Capsule 1 capsule Oral ly every 12 hrs; Duration: 7 days Active Omeprazole 40 MG Capsule Delayed Release 1 capsule 30 minutes before morning meal Orally Once a day; Duration: 30 day(s) Active Atorvastatin Calcium 40 MG Tablet 1 tablet Orally Once a day; Duration: 30 day(s) Active Social History Tobacco Use: Social History Observation Description Date Details (start date - stop date) Never Smoker NA - NA Social History Social History Social Info Question Answer Notes Alcohol Screening: Did you have a drink containing alcohol in the past year? Yes How often did you have a drink containing alcohol in the past year? Two to four times a month (2 points) How many drinks did you have on a typical day when you were drinking in the past year? 1 or 2 (0 points) How often did you have six or more drinks on one occasion in the past year? Never (0 points) Points 2 Interpretation Negative Tobacco Use: Are you a: never smoker Additional Findings: Tobacco Non-User Aggressive non-smoker Drug/Alcohol: Social Info Question Answer Notes Alcohol minimal alcohol use Tobacco Use: Social Info Question Answer Notes Smoking Are you a: never smoker Problems Problem Type SNOMED Code ICD Code Onset Dates Problem Status W/U Status Risk Notes Problem Dermatochalasis of right upper eyelid (839795400973383) Dermatochalasis of right upper eyelid (H02.831) Active confirmed Problem Dermatochalasis of left upper eyelid (391588728307030) Dermatochalasis of left upper eyelid (H02.834) Active confirmed Problem Impacted cerumen (04293259) Impacted cerumen, left ear (H61.22) Active confirmed Problem Brow ptosis (961457530) Brow ptosis, bilateral (H57.813) Active confirmed Problem Brow ptosis (417903546) Brow ptosis, unspecified (H57.819) Active confirmed Plan Of Treatment No Information Insurance Providers Payer Name Payer Address Payer Phone Subscriber Number Group Number Insured Name Patient Relationship to Insured Coverage Start Date Coverage End Date MEDICARE [place] PART [address] [place] [address] [id number] ALLEY SCHWARZ Self - patient is the insured [facility] [address] [place] [address] [phone] [id number] ALLEY SCHWARZ Self - patient is the insured Medical (General) History Medical History History ICD Code Arthritis Esophageal reflux high cholesterol Surgical History Surgery Date(Month/Year) tubal ligation hysterectomy, total with bilateral salpi billy-oopherectomy (BSO) Sacropexy foot surgery
--- NOTE | 2025-05-23 18:14 | PC.NURSE ---
Pt called staff into room to ask what the plan was. This RN notified pt that we were just waiting on the provider to see her, that all her results at this time are re-assuring, pt and upset that they have been having to wait more than a couple of hours if nothing is wrong. This RN provided emotional support, gave warm blankets. This RN went and talked with the MD to discuss pt concerns, MD at this time is held up with another critical pt however placed some repeat lab work, which was collected at this time and will get into pt room as soon as he can.
[2025-05-23 18:38] LABS: Troponin-I High Sensitivity 2.7 ng/L (<3.5-17.0)
[2025-05-23 19:32] VITALS: BP 116/53; PULSE 75; RESP 16; TEMP 36.7; O2SAT 97
== END 2025-05-23 19:33 | disposition home or self-care (01) ==
PROVIDERS: Physician Assistant Medical; Emergency Provider Emergency Medicine Emergency Medical Services; PCP Internal Medicine
DX: R07.9 Chest pain, unspecified (principal); R06.02 Shortness of breath
CPT/HCPCS: 36415; 71046; 80053; 83690; 83735; 83880; 84484; 85025; 85379; 93005; 99283; 99285

== ENCOUNTER → 2025-05-23 12:57 | Outpatient (BNV) | payer MEDICARE, SELFPAY | PROVIDERS: Emergency Provider Emergency Medicine Emergency Medical Services; PCP Internal Medicine; Visit Provider Internal Medicine Cardiovascular Disease | DX: R94.31 Abnormal electrocardiogram [ECG] [EKG] (principal); R07.9 Chest pain, unspecified | CPT/HCPCS: 93010 ==

== ENCOUNTER 2025-05-29 10:07 | Outpatient (AMB) | payer MEDICARE, SELFPAY ==
--- OUTSIDE RECORDS SUMMARY | 2023-12-03 09:00 | XMS_ITS ---
Author Organization [facility] Address [address] [facility] [address] [place] [address] Care Team Providers Care Manager It Training Name Role Phone Ulices IRAHETA MD, SIMONE Primary Care Provider Unavailab Kayla Ugarte Unavailable [phone] Allergies Allergen (clinical drug ingredient) Drug/Non Drug Allergy documented on EMR Reaction Allergy Type Onset Date Status Penicillin Yeast Drug Allergy Active Substance with sulfonamide structure and antibacterial mechanism of action (substance) Sulfa Antibiotics Unknown Drug Allergy Active REASON FOR VISIT HR MEDICARE PE Encounters Encounter Location Date Provider Diagnosis [facility] [address] [address] 12/03/2023 Kayla Wilkins Plan Of Treatment Next Appt Details Provider Name:Kayla zeng, 12/28/2025 02:20:00 PM, [address] [place] [address], [facility] [address], [place], [address], Progress Notes * ALLEY SCHWARZDOB:1945 ( 80 yo F)Acc No.[id number]:12/03/2023 PROGRESS NOTES Patient: ALLEY MCGHEE Appointment Provider: Johnny Wilkins M.D. :1945 A ge:78 Y S ex:Female Date:12/03/2023 Address:[address] [place], [place] [phone] Pcp:SIMONE IRAHETA MD Subjective: * Chief Complaints: * 1 . HR MEDICARE PE. * Medical History: M enopausal and female climacteric states, Diaphragmatic hernia without obstruction or gangrene, Dyspareunia, Gastro-esophageal reflux disease without esophagitis, Hormone replacement therapy (postmenopausal), Postmenopausal atrophic vaginitis, Inconclusive mammogram, Unspecified ovarian cyst, unspecified side, Diverticulitis of intestine, part unspecified, without perforation or abscess without bleeding, Mammographic heterogeneous density, bilateral breasts. * Pole Maker History: G ravida/ Para 3 /3. S exual activity c urrently sexually active. L ast Pap Smear: 1 . M ammogram: 1 07/24/22 50-75% density, 05/12/22 50-75% density, 05/06/21 50-75% density, 06/10/19 Breast MRI, 05/06/18 Breast MRi, 01/17/18 Right 50-75% density, 05/22/17 50-75% density, 05/26/2016 normal, 05/24/15 50-75% density, , 05/22/14, 50-75% density. L MP and menses H yst. B irth Control: b ilateral tubal ligation. H ysterectomy: Y es, LYLE. E ndoscopy * . C olonoscopy , 02/2014. B one Density: 1 07/06/20, 05/22/17, 05/19/13. G YN HISTORY MISC. 1 07/25/14 Dense Breast, Patient Aware. 05/31/16 Janett Score Lifetime Risk = 3.1%. * OB History: T otal pregnancies 3 . T otal living children 3 . N VD 3 . * Allergies: P enicillin: Yeast - Allergy, Sulfa Antibiotics: Allergy. Objective: * Vitals: Assessment: Plan: * Treatment: * Images: Billing Information: * Visit Code: * Procedure Codes: * Electronic signature of Salvatore Wilkins MD on 05/29/2025 at 11:26 AM EST Sign off status: Pending * Appointment Provider: Johnny Wilkins M.D. Date: 0 12/03/2023 Generated for Maycol sharma/Lia/eTraheemsmitting on: 1 07/30/2024 11:26 AM EST
--- OUTSIDE RECORDS SUMMARY | 2024-06-26 12:00 | XMS_ITS ---
Author Organization [facility] Address [address] [place] [address] Care Team Providers Care Home Administrator Name Role Phone MD Candi Cheung Primary Care Provide r [phone] REASON FOR VISIT Awe Social History Sex Assigned At : Social History Observation Description Sex Assigned At Female Encounters Encounter Location Date Provider Diagnosis [facility] [address] [place] [address] 06/26/2024 Candi Graham Plan Of Treatment Next Appt Details Provider Name:Candi quintero, 11/02/2025 01:30:00 PM, [address] [facility] [address], [address], Progress Notes * Cayla HECK DDOB:1945 (80 yo F)Acc No.[id number]:06/26/2024 Progress Notes Patient: Heron Cayla JIMENEZ Provider: Johnny Graham MD :1945 A ge:79 Y S ex:Female Date:06/26/2024 [facility] Jennifer [facility] Subjective: * Chief Complaints: * 1 . Awe. * Medical History: Objective: * Vitals: Assessment: Plan: * Treatment: Care Plan: * Problems: * Images: Billing Information: * Visit Code: * Procedure Codes: Care Plan Details* * Electronic signature of MD Johnny Graham on 05/29/2025 at 11:25 AM EST Sign off status: Pending * Provider: Johnny Graham MD Date: 0 06/26/2024 Generated for Maycol sharma/Lia/Daysi on: 1 07/30/2024 11:25 AM EST
--- OUTSIDE RECORDS SUMMARY | 2024-06-28 04:00 | XMS_ITS ---
Author Organization [facility] Address [address] [facility] [address] [place] [address] Care Team Providers Care District Fire Chief Name Role Phone Eulalio Chavarria Unavailable [phone] Migration, Provider Unavailable Unavailable REASON FOR VISIT EMR-Harvey Encounters Encounter Location Date Provider Diagnosis [facility] [address] [address] 06/28/2024 Provider Migration Plan Of Treatment No Information Progress Notes * CHONG JASMINADALLASDOB:1945 ( 80 yo F)Acc No.[id number]:06/28/2024 Patient: Heron JACQUELINEUlices ALLEY :1945 A ge:79 Y S ex:Female Phone: Address:[address] [place] [address], [address] Subjective: * Chief Complaints: * E MR-Harvey * * Date:
--- OUTSIDE RECORDS SUMMARY | 2024-06-29 04:00 | XMS_ITS ---
Author Organization [facility] Address [address] [facility] [address] [place] [address] Care Team Providers Care Employment Supervisor Name Role Phone Eulalio Chavarria Unavailable [phone] Migration, Provider Unavailable Unavailable REASON FOR VISIT EMR-Harvey Encounters Encounter Location Date Provider Diagnosis [facility] [address] [address] 06/29/2024 Provider Migration Plan Of Treatment No Information Progress Notes * CHONG JASMINADALLASDOB:1945 ( 80 yo F)Acc No.[id number]:06/29/2024 Patient: Heron JACQUELINEUlices ALLEY :1945 A ge:79 Y S ex:Female Phone: Address:[address] [place] [address], [address] Subjective: * Chief Complaints: * E MR-Harvey * * Date:
--- OUTSIDE RECORDS SUMMARY | 2024-10-17 07:35 | XMS_ITS | Continuity of Care Document ---
Author Organization [facility] Address [address] [facility] [address] [place] [address] Care Team Providers [employer] Name Role Phone Samir Kingston OD Unavailable Unavailable Allergies, Adverse Reactions, Alerts Substance Reaction Status Criticality No Known Allergies Active No Inform ation Medications Medication Instructions Dosage Dose Quantity Effective Dates (start - stop) Status Indication Fill Status Comments montelukast 10 mg tablet take 1 tablet by oral route every day in the evening 40 MG 1 tablet - Active Flonase Allergy Relief 50 mcg/actuatio n nasal spray,suspen denise spray 1 - 2 spray by intranasal route every day in each nostril as needed 40 MG 1 tablet - Active omeprazole 40 mg capsule,cece yed release take 1 capsule by oral route every day before a meal 40 MG 1 tablet - Active butalbital-a cetaminophen -caffeine 50 mg-300 mg-40 mg capsule take 1 - 2 capsule by oral route every 4 hours as needed not to exceed 6 capsules per 24hrs 40 MG 1 tablet - Active CoQ-10 100 mg capsule take 1 capsule by oral route every day 1 capsule - Active dicyclomine 20 mg tablet take 1 tablet by oral route 2 times every day 20 MG 1 tablet - Active estradiol 0.025 mg/24 hr semiweekly transdermal patch apply 1 patch by transdermal route 2 times every week cyclically, 3 weeks on and 1 week off 40 MG 1 tablet - Active Sivan-C with Bioflavonoid s 1,000 mg-200 mg tablet 40 MG 1 tablet - Active Tumersaid 100 mg-100 mg-100 mg-125 mg tablet 40 MG 1 tablet - Active magnesium 250 mg tablet take 1 tablet by oral route 2 times every day - Active Lipo-Flavono id Plus 200 mg-100 mg tablet 40 MG 1 tablet - Active Probiotic 20 billion cell sprinkle capsule 40 MG 1 tablet - Active ondansetron HCl 4 mg/5 mL oral solution take 10 milliliter by oral route 2 times every day 40 MG 1 tablet - Active Vitamin D3 25 mcg (1,000 unit) tablet 40 MG 1 tablet - Active Vitamin B-12 1,000 mcg/mL oral drops 40 MG 1 tablet - Active Citracal Regular 250 mg calcium-200 unit tablet 40 MG 1 tablet - Active biotin 10,000 mcg disintegrati ng tablet 40 MG 1 tablet - Active atorvastatin 40 mg tablet take 1 tablet by oral route every day 40 MG 1 tablet - Active Problems Condition Type Effective Dates (start - stop) Diagnosed Date Clinical Status Comments Excess skin of eyelid Problem (finding) Active (qualifier value) Procedures Procedure Date Compre oph exam est pt REFRACTION Visual Test Advance Directives Directive Yes / No Effective Date File Name No Information Encounters Encounter Description Practice Location Reason(s) For Visit Diagnoses Date Provider Encounter Disposition [address], [id number], [facility] Blurry vision (chief complaint) PresbyopiaPrese nce of intraocular lensPosterior vitreous detachment of both eyesDry eye syndrome of bilateral lacrimal glands 5 Vashti OD Samir. [facility] [address], [id number] , . tel:[phone] [address], [id number], [facility] Blurry Vision (chief complaint) PresbyopiaPrese nce of intraocular lensPosterior vitreous detachment of both eyesDry eye syndrome of bilateral lacrimal glands 4 Vashti OD Samir. [address], [id number] , . tel:[phone] [address], [id number], [facility] blurry vision (chief complaint) Dry eye syndrome of bilateral lacrimal glandsPosterior vitreous detachment of both eyesPresence of intraocular lensPresbyopia 3 Kipton OD Samir. [address], [place], [place], [id number] , [place]. tel: [phone] [facility] [place], [address] [facility] [address], [place], [place], [id number], [place] [facility] [place] [place] Dermatochalasis of right upper eyelidDermatoch alasis of left upper eyelid Aug- 2 Kipton OD Samir. [address], [place], [place], [id number] , [place]. tel: [phone] [facility] [place], [address] [place] [address] [address], [place], [id number], [place] [facility] [place] [place] Dermatochalasis of left upper eyelidDermatoch alasis of right upper eyelid Fe 2 Vashti OD Samir. [address], [place], [place], [id number] , [place]. tel: [phone] [facility] [place], [address] [place] [address] [address], [place], [id number], [place] [facility] [place] [facility] flashes of light (chief complaint) Posterior vitreous detachment of both eyesPresence of intraocular lensPresbyopiaD ermatochalasis of right upper eyelidDermatoch alasis of left upper eyelid 2 Kipton OD Samir. [address], [place], [place], [id number] , [place]. tel: [phone] [facility] [place], [facility] [address] [facility] [address], [place], [id number], [place] [facility] [place] [facility] Final Post op (chief complaint) Presence of intraocular lensPresbyopiaD ermatochalasis of both upper eyelids 1 Kipton OD Samir. [address], [place], [place], [id number] , [place]. tel: [phone] [facility] [place], [address] [place] [address] [address], [place], [id number], [place] [facility] [place] [place] Presence of intraocular lens Apr-2 1 Vashti OD Samir. [address], [place], [id number] , [place]. tel: [phone] [facility] [place], [address] [facility] [address], [place], [place], [id number], tel:[phone] [facility] No Information Sep-[address] [facility] [place]. [address], [place], [place], [id number] , [place]. tel: [phone] [facility] [place], [address] [facility] [address], [place], [id number], [facility] No Information Apr-2 1 Maite Bonner. [address], [place], [place], [id number] , . tel: [phone] [facility] [place], [facility] [address] [facility] [address], [place], [id number], [place] [facility] [place] [place] No Information Sep-2 1 Maite Bonner. [address], [place], [place], [id number] , . tel: [phone] [facility] [place], [address] [facility] [address], [place], [id number], [place] [facility] [place] [facility] Glare (chief complaint) Post Op (chief complaint) Nuclear sclerosis cataract of right eyePresence of intraocular lensPresbyopia Apr-2 1 Vashti OD Samir. [address], [place], [place], [id number] , [place]. tel: [phone] [facility] [place], [address] [facility] [address], [place], [id number], [place] [facility] [place] [place] Presence of intraocular lens Apr-0 1 Kipton OD Samir. [address], [place], [id number] , [place]. tel: [phone] [facility] [place], [address] [facility] [address], [place], [id number], [place] tel:[phone] [facility] No Information Apr-0 8- [address] [facility] [place]. [address], [place], [id number] , . tel: [phone] [facility] [place], [address] [facility] [address], [place], [id number], [place] [facility] [place] No Information Apr-0 8 1 Maite Bonner. [address], [place], [place], [id number] , . tel: [phone] [facility] [place], [address] [facility] [address], [place], [id number], [facility] No Information Apr-0 8 1 Maite Bonner. [address] [facility] [address], [place], [place], [id number] , . tel: [phone] [facility] [place], [address] [facility] [address], [place], [id number], [place] 01 [facility] No Information Apr-0 1 Maite Bonner. [address] [facility] [address], [place], [place], [id number] , [place]. tel: [phone] [facility] [place], [address] [facility] [address], [place], [address] [place] [address], [place] [facility] [place] [place] Pre-Op Clearance (chief complaint) Migraine HAs (chief complaint) GERD (chief complaint) Hyperlipid emia (chief complaint) Encounter for other preprocedural examinationAge- related nuclear cataract, bilateral Apr-0 1 Lesley Gould. [address], [place], [place], [id number] , [place]. tel: [phone] [facility] [place], [address] [facility] [address], [place], [id number], [place] [facility] [place] [facility] Decreased Vision (chief complaint) Glare (chief complaint) Age-related nuclear cataract, bilateralPresby opia Mar-2 1 Maite Bonner. [address], [place], [place], [id number] , . tel: [phone] [facility] [place], [address], [place], [id number], [place] [facility] [place] [facility] glare (chief complaint) blurred vision (chief complaint) Age-related nuclear cataract, bilateralPresby opia Nov-0 0 Maite Bonner. [address], [place], [place], [id number] , [place]. tel: [phone] Family History Family Member Type Diagnosis Age At Onset Mother Problem (finding) glaucoma Brother Problem (finding) degenerative disorder o f macula Payers Payer name Insurance type Identifiers Authorization(s) Com ments Medicare MB new ID: [id number] Name: Coverage Status Eligibility Check on: [id number] nship to Subscriber: selfPayer Address: [address], [place], [address], [place] Phone: [phone] [employer] [id number] BL iber ID: [id number] Name: Coverage Status Eligibility Check on: [id number] nship to Subscriber: selfPayer Address: [address], [place], [address], [place] Phone: [phone] Social History Type Description Quantity Date Captured Comments Alcohol Use Details Caffeine Use Details Unknown Tobacco Use Status Current non-smoker Smoking Status Never smoker Non-Smoking Tobacco Use Details : No Details Available : No Details Available Sex Female Current Gender Female (finding) Unknown Chief Complaint And Reason For Visit From encounter dated '10/17/2024 12:35'. Blurry vision (chief complaint). Description: The patient presents for blurry vision in both eyes over the past year. Patient states that she finds herself using her readers more often to see fine print. Plan Of Treatment Date Type Action Status Referral Ordered: Candi Wade -Family Medicine (related to Posterior vitreous detachment of both eyes) ordered Referral Ordered: Candi Wade -Family Medicine (related to Dry eye syndrome of bilateral lacrimal glands) ordered Referral Referred To: Candi Wade [address] [place], [phone] Ordered: Referrals: Family Medicine. Candi Wade. Assume care ordered Appointment Cayla Heck BOOKED History Of Present Illness Encounter Date Complaint History Of Prese nt Illness Blurry vision The patient pres ents for blurry vision in both eyes over the past year. Patient states that she finds herself using her readers more often to see fine print. Blurry Vision The 78 year old female presents for evaluation of Blurry Vision in both eyes over the last few months. Patient reports difficulty reading fine print, patient states thing she can normally read without cheaters she has a hard time. blurry vision The 77 year old female presents for evaluation of blurry vision in both eyes. The patient states her vision is sometimes blurry ad foggy, but it is not ll the time. She thinks she is having a harder time reading. The patient states she is using artificial tears 3-4 times daily. flashes of light The 76 year old female presents for evaluation of flashes of light of both eyes. Patient states that she started having them right after her surgery but is off and on. Patient states that she had flashes of light about a week ago. Patient states that it is more like she catches a glimpse of something. Patient states that when she was watching TV and noticed once she shut her Tv off she had a hard time seeing the light from her night lights, Patient states after a few minutes passed and blinked a few times then she could finally see her night lights. Patient denies any pain or discomfort and showers of floaters. Final Post op Patient present for Final Post op of cataract surgery in both eyes. Patient states vision has improved after surgery. Patient states able to drive without correction and am able to also read some small print. Glare The patient comp lains of glare in the right eye worsening over the last 6 months. She states that the glare of oncoming headlights have become bothersome and make driving at night more difficult. Post Op The patient pres ents for a post op evaluation of the left eye following cataract surgery. She reports no pain or discomfort but said she feels like sometimes has a blinder blocking the outside of her vision. She states she feels her vision has improved and the colors are much brighter. Hyperlipidemia GERD Migraine HAs Pre-Op Clearance Glare The patient comp lains of glare in both eyes worsening over the last 6 months. She states that while driving at night the glare of oncoming headlights have made it difficult to see properly. Decreased Vision The patient com plains of decreased vision in both eye worsening over the last 6 months. She states it has become more difficult to read fine print even with her glasses on. glare Patient presents for evaluation of glare in both eyes. Patient states that over the past few months she has been having difficulty with glare from the oncoming bright car lights while driving at night. blurred vision Patient presents for evaluation of blurred vision in both eyes. Patient states that over the last few months she has been having difficulty with blurred vision while watching television. Patient states that they cannot correct her vision with new glasses any longer and she is having a difficult time to see the golf ball while out on the green. Functional Status Date Description Comments No Information Instructions Date Instruction Additional Infor evi 1 Year for Complete Dilated Exam Related to Posterior vitreous detachment of both eyes Impression/Plan - Pr escription given. Related to Presbyopia Impression/Plan - Vi treous and retina appear stable at this time. Discussed signs and symptoms of retinal detachment (flashes, floaters, dark peripheral curtains or veils). Discussed importance of evaluation and treatment for retina tear or detachment to prevent permanent vision loss. Patient is aware to be seen immediately for increased or new symptoms. Related to Posterior vitreous detachment of both eyes Impression/Plan - Di scussed dry eye syndrome with patient. Recommend artificial tears (Refresh or Systane preferably) 3-4 times a day into both eyes, if more than 4 times daily recommend patient use a preservative free tear. Warm compress 3-5 minutes 1-2 times daily (recommend mask or rice in sock). If artificial tears alone do not provide relief return to clinic for further treatment. Related to Dry eye syndrome of bilateral lacrimal glands Impression/Plan - Co ntinue to monitor. Related to Presence of intraocular lens 1 year for complete dilated exam Related to Dry eye syndrome of bilateral lacrimal glands Impression/Plan - Di scussed dry eye syndrome with patient. Recommend artificial tears (Refresh or Systane preferably) 3-4 times a day into both eyes. Warm compress 3-5 minutes 1-2 times daily with Lo style mask or home made compress(dry rice in sock). If artificial tears alone do not provide relief return to clinic for further treatment.Continue to monitor, sooner if needed. Related to Dry eye syndrome of bilateral lacrimal glands Impression/Plan - Co ntinue to monitor. Related to Presence of intraocular lens Impression/Plan - Pr escription given. Related to Presbyopia Impression/Plan - Si gns and symptoms of retinal detachment reviewed in detail with patient. Patient instructed to call right away with any change in vision or increase of flashes and/or floaters. Related to Posterior vitreous detachment of both eyes Impression/Plan - (D iscussed) routine use of artificial tears 3-4 times daily in both eyes, gel at bed time Related to Dry eye syndrome of bilateral lacrimal glands Impression/Plan - MRx Given Rela lali to Presbyopia Impression/Plan - Co ntinue to monitor on annual basis, sooner as needed. Related to Presence of intraocular lens Impression/Plan - Si gns and symptoms of retinal detachment reviewed in detail with patient. Patient instructed to call right away with any change in vision or increase of flashes and/or floaters. Related to Posterior vitreous detachment of both eyes Return to clinic in [address] Samir Kingston OD for Annual dilated fundus exam Related to Presence of intraocular lens Impression/Plan - MRX given. Rel ated to Presbyopia Impression/Plan - Co ntinue to monitor on annual basis, sooner as needed. Related to Presence of intraocular lens Impression/Plan - Si gns and symptoms of retinal detachment reviewed in detail with patient. Patient instructed to call right away with any change in vision or increase of flashes and/or floaters. Related to Posterior vitreous detachment of both eyes Impression/Plan - Pa tient to return for belph VF with possible referral to Dr. Castro. Related to Dermatochalasis of left upper eyelid Impression/Plan - Pa tient to return for belph VF with possible referral to Dr. Castro. Related to Dermatochalasis of right upper eyelid Return in [address] 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 Related to Nucle ar sclerosis cataract of right eye Impression/Plan - Hold until POF Related to Presbyopia Impression/Plan - Co ntinue all post op drops as instructed. Related to Presence of intraocular lens Impression/Plan - Pa tient elects to proceed with PCIOL OD aim plano conventional Related to Nuclear sclerosis cataract of right eye cataract sx OS Related to Age-r elated nuclear cataract, bilateral Impression/Plan - Up dated mrx to be dispensed at POF Related to Presbyopia Impression/Plan - Pt elects to proceed with conventional phaco PCIOL- Plan OS aim plano. Anticipate to match OD. Related to Age-related nuclear cataract, bilateral Impression/Plan - monitor annual ly Related to Presbyopia Impression/Plan - Pa brennan elects to monitor for now as she is leaving for [place] in 2 weeks. Patient would like to come back in June when she is back in [place]. Patient advised to call sooner with any changes in vision. Related to Age-related nuclear cataract, bilateral Assessments Type Assessment Date assessment Presbyopia impression Refraction obtained assessment Presence of intraocular lens October impression Status: Stable. Centered bilater al assessment Posterior vitreous detachment of both eyes impression Status: Stable. No Holes, No Tea rs bilateral assessment Dry eye syndrome of bilateral la crimal glands impression Status: Stable
[2025-05-29 10:19] VITALS: BP 118/62; PULSE 71; RESP 14; O2SAT 95; BMI 26.2
--- NOTE | 2025-05-29 10:19 | A.OFFPC_ITS ---
Vital Signs 05/29/25 10:19 Height 5 ft 2 in Weight 143 lb 2 oz BMI 26.2 BP 118/62 Blood Pressure Location Rt brachial Position Sitting Respiration 14 Pulse 71 Pulse Source Pulse Oximeter Pulse Oximetry (%) 95 Oxygen Delivery Method Room Air Intake Visit Reasons: [facility] [place], chest pain Intake Note: Emergency room follow up Bank Guard Required: No Allergies No Known Allergies Allergy (Verified 05/29/25 10:20) Tobacco use date assessed: 05/11/25 Fall risk assessment: No Falls in past year Last assessed Fall Risk: 05/29/25 Dental Screening Dental Screen Date: 05/11/25 HPI HPI Comments History of Present Illness Details 79 year old female with a past medical h istory of hyperlipidemia, GERD, OA presenting for follow up Was evaluated in [facility] on 05/23 for chest pain. The chest pain radiates front to the back sometimes worse with deep breath. Mild shortness of breath there is no nausea no vomiting the pain is somewhat sharp. Patient has recently traveled back from [place]. There is no history of cancer. Patient thinks it is like a rock in her chest. Has been constantly there since 15:00. ACS rule out. She had echocardiogram with basal inferior hypokineses and is scheduled for a nuclear stress test. She has an upcoming appointment with cardiology CV: On lipitor 40mg daily. Intermittent swelling in the legs and orthopnea. She feels like she is retaining water. She eats a low salt diet. She now has prn lasix GI. Stable on omeprazole 40mg daily OA: [facility] both hands. She has had physical therapy in the past. She has been on nabumetone in the past. Follows with chiropractor. Has a hand specialist in [place]. Headaches are stable on fioricet Preventive Breast MRI 2019 Mammogram-2021 Colonoscopy 2018, Colonoscopy/EGD-Feb 2025 Hysterectomy 1986. On estrace, gurwinder BEARD CONSTITUTIONAL: Denies weight loss, fever and chills. HEENT: Denies changes in vision and hearing. RESPIRATORY: Denies SOB and cough. CV: Denies palpitations and CP GI: Denies abdominal pain, nausea, vomiting and diarrhea. : Denies dysuria and urinary frequency. MSK: Denies new myalgia and joint pain. SKIN: Denies rash and pruritus. NEUROLOGICAL: Denies headache PSYCHIATRIC: Denies recent changes in mood. PHYSICAL EXAM: GENERAL: Alert and oriented x 3. NAD EYES: EOMI. Anicteric. HENT: Moist mucous membranes. No scleral icterus. No cervical lymphadenopathy. LUNGS: Clear to auscultation bilaterally. CARDIOVASCULAR: Regular rate and rhythm. No murmur. No JVD. ABDOMEN: Soft, non-tender +bs EXTREMITIES: No edema. Non-tender. SKIN: No rashes or lesions. Warm. NEUROLOGIC: No focal neurological deficits. CN II-XII grossly intact PSYCHIATRIC: Cooperative. Appropriate mood and affect PFSH Family History Brother HTN (hypertension) Mother Osteoporosis Social History Housing: House Alcohol intake: current Patient Tobacco Use Status: Never used Tobacco e-Cigarette/Vaping Use: Never Used Second Hand Smoke Exposure: No service: No Current occupational status: retired Cognitive needs: No Hearing needs: No Vision needs: No Questionnaire Thrive Questionnaire Date Thrive assessed: 05/08/25 I am a: Patient What is your living situation today?: I have a steady place to live Within the past 12 months, did the food you bought not last and you didn't have the money to get more?: Never true Within the past 12 months, did you worry whether your food would run out before you got money to buy more?: Never true Do you have trouble paying for medicines?: No Do you have trouble getting transportation to medical appointments?: No Do you have trouble paying your heating and electricity bill?: No Do you have trouble taking care of your child, family member or friend?: No Do you have trouble with day-to-day activities such as bathing, preparing meals, shopping, managing finances, etc.?: No Are you currently unemployed and looking for a job?: No Are you interested in more education?: No Currently or been in a relationship where the following occur: No concerns reported THRIVE Score: 0 KENDRICK-7 AMB Questionnaire KENDRICK-7 Date KENDRICK - 7 assessed: 05/05/24 Source: Developed by Drs. Luis Ron, Cayla Devine, Ramos Patel and colleagues, with an educational marcelle from [employer]. Physical exam (Primary Care) Vital Signs: Last Vital Signs Pulse 71 05/29/25 10:19 Resp 14 05/29/25 10:19 BP 118/62 05/29/25 10:19 Pulse Ox 95 05/29/25 10:19 Oxygen Delivery Method Room Air 05/29/25 10:19 BMI result Body Mass Index 26.2 Tobacco/Smoking Status: Tobacco use Status Tobacco use date assessed 05/11/25 05/29/25 10:24 Patient Tobacco Use Status Never used Tobacco 05/29/25 10:24 e-Cigarette/Vaping Use Never Used 05/29/25 10:24 Thrive Assessment: Date of Thrive Assessment Date Thrive assessed 05/08/25 05/29/25 10:24 Currently or been in a relationship where the following occur: No concerns reported Coding Level of Care Code Est Pt Level 4 (22815) Diagnoses Anxiety F41.9 Assessment & Plan Assessment & Plan (1) Anxiety: Code(s): F41.9 - Anxiety disorder, unspecified Category: Medical Plan ER course, testing reveiwed Patient has an upcoming nuclear stress test and cardiology consultation Epigastric pain-ggtp ordered Anxiety/insomnia-lorazepam sparing as needed Orders: Orders Gamma Glutamyl Transpeptidase 05/29/25 R10.13 - Epigastric pain Medications: New lorazepam (Ativan) 0.5 mg PO BID PRN 10 tabs 0RF anxiety
--- OUTSIDE RECORDS SUMMARY | 2025-05-29 11:24 | XMS_ITS | Clinical Summary ---
Author Organization [facility] Address [address] [place] [phone] Phone Care Team Providers Care Steam Presser Name Role Phone Marianne Mariano MD Primary Care Provider [phone] Allergies Active Allergy Reactions Criticality Noted Date [...] Health Maintenance Due Date Last Done Comments Drug Screen 1945 Non-Opioid Controlled Substance Agreement 1945 Pneumococcal Vaccine: 50+ Years (1 of 1 [...] age to complete this topic Insurance MEDICARE [facility] Care Teams Steam Presser Relationship Specialty Start Date End Date Marianne Mariano MD [address] [place] [phone] PCP - General Internal Medicine 03/29/24
--- OUTSIDE RECORDS SUMMARY | 2025-05-29 11:25 | XMS_ITS | Patient Health Record ---
Author Organization [facility] Address [address] [place], [place] [address] Support Name Relationship Address Phone GILLIAN WASHINGTON Emergency Contact Unknown Joy GUTIERREZKAYJASMINAET Guarantor Unknown [phone] Reason For Referral No Information Medications Medication [...] Status W/U Status Risk Notes Problem Hyperlipidemia (30627651) Hyperlipidemia, unspecified (E78.5) 2015 Active confirmed Harvey-71 7505- Problem Chronic migraine without aura, non-refractory (disorder) (224125100448187) Migraine without aura, not intractable, without status migrainosus (G43.009) 2017 Active confirmed Harvey-71 7505- Problem Aural vertigo (23143969) Aural vertigo, unspecified ear (H81.319) 2017 Active confirmed Harvey-71 7505- Problem Atherosclerosis of aorta (90916877) Atherosclerosis of aorta (I70.0) 2016 Active confirmed Harvey-71 7505- Problem Gastro-esophageal reflux disease without esophagitis (752147637) Gastro-esophageal reflux disease without esophagitis (K21.9) 2015 Active confirmed Harvey-71 7505- Problem 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 kidney, 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) 2016 Active confirmed Harvey-71 7505- Problem Dizziness and giddiness (905326537) Dizziness and giddiness (R42) 2017 Active confirmed Harvey-71 7505- Problem Laboratory test result abnormal (257694336) Abnormal levels of other serum enzymes (R74.8) 2017 Active confirmed Harvey-71 7505- Problem Cyst of right ovary (45258093856205850) Unspecified ovarian cyst, right side (N83.201) 2016 Active confirmed Harvey-71 7505- Problem Hormone replacement therapy (336608366) Hormone replacement therapy (Z79.890) 2015 Active confirmed Harvey-71 7505- Problem Other specified bacterial foodborne intoxications (A05.8) 2017 Problem resolved confirmed Harvey-71 7505- Problem Vertigo of central origin (16463096) Vertigo of central origin, unspecified ear (H81.49) 2017 Problem resolved confirmed Harvey-71 7505- Problem Acute laryngopharyngitis (19102339) Acute laryngopharyngitis (J06.0) 2016 Problem resolved confirmed Harvey-71 7505- Problem Dermatitis herpetiformis (242902847) Dermatitis herpetiformis (L13.0) 2017 Problem resolved confirmed Harvey-71 7505- Problem Pain of left hip joint (finding) (324436304217052) Pain in left hip (M25.552) 2015 Problem resolved confirmed Harvey-71 7505- Problem Displacement of lumbar intervertebral disc without myelopathy (22660440) Other intervertebral disc displacement, lumbar region (M51.26) 2016 Problem resolved confirmed Harvey-71 7505- Problem Lumbar radiculopathy (953017017) Radiculopathy, lumbar region (M54.16) 2016 Problem resolved confirmed Harvey-71 7505- Problem Urinary tract infectious disease (disorder) (56566068) Urinary tract infection, site not specified (N39.0) 2017 Problem resolved confirmed Harvey-71 7505- Problem Skin sensation disturbance (31665633) Hypoesthesia of skin (R20.1) 2015 Problem resolved confirmed Harvey-71 7505- Problem Eruption of skin (970615215) Rash and other nonspecific skin eruption (R21) 2016 Problem resolved confirmed Harvey-71 7505- Problem Painful micturition (20174353) Painful micturition, unspecified (R30.9) 2017 Problem resolved confirmed Harvey-71 7505- Problem Solitary pulmonary nodule (125340595) Solitary pulmonary nodule (R91.1) 2017 Problem resolved confirmed Harvey-71 7505- Problem Abnormal results of liver function studies (074903319) Abnormal results of liver function studies (R94.5) 2016 Problem resolved confirmed Harvey-71 7505- Problem Adult health examination (836260663) Encounter for general adult medical examination without abnormal findings (Z00.00) 2016 Problem resolved confirmed Harvey-71 7505- Problem Body mass index 25-29 - overweight (277335636) Body mass index (BMI) 26.0-26.9, adult (Z68.26) 2016 Problem resolved confirmed Harvey-71 7505- Problem Body mass index 25-29 - overweight (747448002) Body mass index (BMI) 27.0-27.9, adult (Z68.27) 2015 Problem resolved confirmed Harvey-71 7505- Problem Body mass index 25-29 - overweight (648118315) Body mass index (BMI) 28.0-28.9, adult (Z68.28) 2017 Problem resolved confirmed Harvey-71 7505- Plan Of Treatment No Information Insurance Providers Payer Name Payer Address Payer Phone Subscriber Number Group Number Insured Name Patient Relationship to Insured Coverage Start Date Coverage End Date MEDICARE PART B [address] [address] [place] [address] [phone] [id number] MATTKAY ALLEY Self - patient is the insured 8 [facility] [employer] [address] [place] [address] [id number] CHONG ALLEY Self - patient is the insured MEDICARE PART B [address] [address] [place] [address] [phone] [id number] CHONG ALLEY Self - patient is the insured 6 8
--- OUTSIDE RECORDS SUMMARY | 2025-05-29 11:25 | XMS_ITS | Patient Health Record ---
Author Organization [facility] Address [address] [place] [address] Care Team Providers Care Conference Services Director Name Role Phone Ulices IRAHETA MD, SIMONE Primary Care Provider Kayla Rudolph Unavailable [phone] Allergies Allergen (clinical drug ingredient) Drug/Non Drug [...] Active Cranberry/Probiotic - as directed Orally Active Idnfhbwwgj-OLW-Njnyd ine 50-325-40 MG 1 capsule as needed [...] a day; Duration: 30 day(s) Active Biotin 89038 MCG 1 tablet Orally Once a day; [...] Problem Screening for malignant neoplasm of breast (185650312) Encounter for other screening for malignant neoplasm of breast (Z12.39) Active confirmed Problem Postmenopausal atrophic vaginitis (14662738) Postmenopausal atrophic vaginitis (N95.2) Active confirmed Problem Herniation of rectum into vagina (095860027) Rectocele (N81.6) Active confirmed Problem Cystocele (544545537) Cystocele, unspecified (N81.10) Active confirmed Problem Atrophy of vulva (417996381) Atrophy of vulva (N90.5) Active confirmed Problem Hesitancy of micturition (1322272) Hesitancy of micturition (R39.11) Active confirmed Problem Functional urinary incontinence (948616636) Functional urinary incontinence (R39.81) Active confirmed Problem Esophageal reflux (648211442) Esophageal reflux (530.81) Active confirmed Major Problem Diaphragmatic hernia (14585002) Diaphragmatic hernia without mention of obstruction or gangrene (553.3) Active confirmed Other Problem Menopausal symptom (98576572) Symptomatic menopausal or female climacteric states (627.2) Active confirmed Major Problem Gynecological examination normal (598411914775775) Routine gynecological examination (V72.31) Active confirmed Major Problem Screening for malignant neoplasm of colon (995407297) Special screening for malignant neoplasms, colon (V76.51) Active confirmed Major Vital Signs Temperature 97.4 degrees Fahrenheit 12/24/2024 Blood pressure diastolic 62 mm Hg 12/24/2024 Height 62 in 12/24/2024 Blood pressure systolic 128 mm Hg 12/24/2024 Weight 136 lbs 12/24/2024 BMI 24.87 kg/m2 12/24/2024 Encounters Encounter Location Date Provider Diagnosis Total [address] [place] [address] 12/24/2024 Kayla Wilkins Encounter for gynecological examination [...] BETA 10/16/2016 URINE CULTURE 11/24/2022 BONE DENSITY 12/21/2023 BONE DENSITY 12/24/2024 BONE DENSITY 06/17/2020 MM Digital Mammo Screening 12/24/2024 MM Digital Mammo Screening 12/21/2023 MM Digital Mammo Screening 11/29/2022 MM Digital Mammo Screening 11/24/2021 MM Digital Mammo Screening 06/17/2020 MM Digital Mammo Screening 06/16/2019 MM Digital Mammo Screening 06/08/2017 MM Digital Mammo Screening 06/13/2018 Bilateral Digital Diagnostic Mammo 12/20 BILAT DIAGNOSTIC BREAST ULTRASOUND 12/20 Next Appt Details Provider Name:Kayla Muniz karri, 12/28/2025 02:20:00 PM, [address] [place] [address], [address], [place], [address], Insurance Providers Payer Name Payer Address Payer Phone Subscriber Number Group Number Insured Name Patient Relationship to Insured Coverage Start Date Coverage End Date MEDICARE [address] [place] [id number] [phone] [id number] CHONG ALLEY Self - patient is the insured [employer] [address] [place] [address] [id number] CHONGJASMINAET Self - patient is the [...]
--- OUTSIDE RECORDS SUMMARY | 2025-05-29 11:25 | XMS_ITS | Clinical Summary ---
Author Organization [facility] Prior to 11/08/[address] [place] [address] Care Team Providers Care Choir Singer Name Role Phone Fatimah Lo MD Primary Care Provider [phone] Medications Medication Sig Dispensed Refills Start Date [...] age to complete this topic Care Teams Choir Singer Relationship Specialty Start Date End Date Fatimah Lo MD [address] [place] [address] PCP - General Family Medicine 01/17/18
--- OUTSIDE RECORDS SUMMARY | 2025-05-29 11:25 | XMS_ITS | Clinical Summary ---
Author Organization [facility] Address [address] [place] [address] Care Team Providers Care Payroll Accounting Specialist Name Role Phone Fatimah Lo MD Primary Care Provider [phone] Kayla Wilkins MD Unavailable [phone] Medications atorvastatin (LIPITOR) 40 MG tablet Take [...] topic Insurance MEDICARE PART A & B [facility] on file [facility] Care Teams Payroll Accounting Specialist Relationship Specialty Start Date End Date Fatimah Lo MD [address] [place] [address] PCP - General 02/20/20 Kayla Wilkins MD [address] [facility] [address] [place] [address] Referring Provider 02/20/20
--- OUTSIDE RECORDS SUMMARY | 2025-05-29 11:25 | XMS_ITS | Patient Health Record ---
Author Organization [facility] Address [address] [address] Care Team Providers Care Cranberry Sorter Name Role Phone Eulalio Chavarria Unavailable [phone] Migration, Provider Unavailable Unavailable Reason For Referral No Information Problems Problem Type SNOMED Code ICD Code Onset Dates Problem Status W/U Status Risk Notes Problem Viral screening (065301000) Encounter for screening for other viral diseases (Z11.59) Active confirmed Encounters Encounter Location Date Provider Diagnosis [facility] [address] [address] 06/28/2024 Provider Migration [facility] [address] [address] 06/29/2024 Provider Migration Plan Of Treatment No Information Insurance Providers Payer Name Payer Address Payer Phone Subscriber Number Group Number Insured Name Patient Relationship to Insured Coverage Start Date Coverage End Date [facility] [address] [facility] [place] [address] [id number] ALLEY SCHWARZ Self - patient is the insured 0 3 Medicare Part B [address] MARY Mcclure [id number] ALLEY SCHWARZ Self - patient is the insured 0 3
--- OUTSIDE RECORDS SUMMARY | 2025-05-29 11:25 | XMS_ITS | Patient Health Record ---
Author Organization [facility] Address [address] [place] [address] Care Team Providers Care Counter Top Assembler Name Role Phone Pauly Graham MD [facility] Provide r [phone] Allergies No Known Allergies Reason For Referral No Information Medications Medication SIG (Take, Route, Frequency, Duration) Notes Start Date End Date Status Ciprofloxacin HCl 500 MG 1 tablet Orally every 12 hrs; Duration: 7 days 04/10/2024 Not-Taking Vitamin B6 Active metroNIDAZOLE 500 MG 1 tablet Orally twi ce a day; Duration: 7 days 04/10/2024 Not-Taking Biotin 49140 MCG 1 tablet Orally Once a day [...] skin Transdermal Two times a Week Active Owcfgssncd-GBBR-Ggrfhvyn 50-325-40 MG 1 capsule as needed Orally [...] Status W/U Status Risk Notes Problem Lymphocytopenia (30733984) Lymphocytopenia (D72.810) Active confirmed Problem Hyperlipidemia (88741129) Hyperlipidemia, unspecified (E78.5) Active confirmed Problem Chronic frontal sinusitis (66316046) Chronic frontal sinusitis (J32.1) Active confirmed Problem Gastro-esophageal reflux disease without esophagitis (975681241) Gastro-esophageal reflux disease without esophagitis (K21.9) Active confirmed Problem Menopause (844898399) Menopausal and female climacteric states (N95.1) Active confirmed Problem Headache (07848262) Headache (R51) Active confirmed Problem Osteoarthritis (475932216) 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) Active confirmed Problem Mild intermittent asthma (303872982) Mild intermittent reactive airway disease without complication (J45.20) Active confirmed Problem Diverticulitis (36756742) Diverticulitis (K57.92) Active confirmed Problem Pain in left foot (600909756199943) Left foot pain (M79.672) Active confirmed Problem Solitary nodule of lung (694430487) Lung nodule (R91.1) Active confirmed Problem Hypoproteinemia (1447081) Hypoproteinemia (E77.8) Active confirmed Problem BMI 25-29 - overweight (224346688) Body mass index 25.0-25.9, adult (Z68.25) Active confirmed Problem Migraine without aura (21416730) Migraine without aura and with status migrainosus, not intractable (G43.001) Active confirmed Problem Normal body mass index (81918216) Body mass index (BMI) 24.0-24.9, adult (Z68.24) Problem resolved confirmed Problem Normal body mass index (27187965) BMI 24.0-24.9, adult (Z68.24) Problem resolved confirmed Problem Body mass index 25-29 - overweight (627712777) Body mass index (BMI) of 26.0 to 26.9 in adult (Z68.26) Problem resolved confirmed Vital Signs Heart Rate 67 /min 04/13/2025 Oximetry 95 % 04/13/2025 Blood pressure diastolic 65 mm Hg 04/13/2025 Height 5'2 in 04/13/2025 Blood pressure systolic 134 mm Hg 04/13/2025 Weight 143 lbs 04/13/2025 BMI 26.15 kg/m2 04/13/2025 Encounters Encounter Location Date Provider Diagnosis [facility] [place] [address] [place] [address] [address] [place] [address] 10/13/2024 Candi Graham Encounter for other screening [...] index 25.0-25.9, adult Z68.25 [facility] [address] [place] [address] 04/13/2025 Candi Graham Mild intermittent reactive airway disease without complication J45.20 ; Hyperlipidemia, unspecified E78.5 ; Migraine without aura and with status migrainosus, not intractable G43.001 ; Gastro-esophageal reflux disease without esophagitis K21.9 ; Lung nodule R91.1 and BMI 26.0-26.9,adult Z68.26 [facility] [address] [place] [address] 10/23/2024 Candi Graham Migraine without aura and with status migrainosus, not intractable G43.[address] [facility] [address] [place] [address] [place] [address] 04/09/2025 Candi Graham Assessments Encounter Date Diagnosis (ICD Code) Assessment Notes Treatment Notes Treatment Clinical Notes Section Notes 10/13/2024 Encounter for other screening for malignant neoplasm of breast (ICD-10 - Z12.39) encounter both oxhm-gt-iyrs and xjr-dovm-ac-fa ce: To prepare for the patient, evaluate the patients condition, and management options. Counted for documenting, reviewing records, labs, sending referral, instructions and disposition. Time spent 45 min 10/23/2024 Migraine without aura and with status migrainosus, not intractable (ICD-10 - G43.001) 04/13/2025 Mild intermittent reactive airway disease without complication (ICD-10 - J45.20) stable, no symptoms encounter both oqkr-mj-bnco and dnv-schm-aj-fa ce: To prepare for the patient, evaluate [...] Care Instructions material was published encounter both jixj-wz-oqvd and kvl-mewc-co-fa ce: To prepare for the patient, evaluate [...] screened for high blood pressure. encounter both bgix-bh-kjjz and aqq-ldgg-vr-fa ce: To prepare for the patient, evaluate the patients condition, and management options. Counted for documenting, reviewing records, labs, sending referral, instructions and disposition. Time spent 45 min 10/13/2024 Encounter for screening for malignant neoplasm of colon (ICD-10 - Z12.11) encounter both gngr-xq-kcwj and gye-ouft-ak-fa ce: To prepare for the patient, evaluate the patients condition, and management options. Counted for documenting, reviewing records, labs, sending referral, instructions and disposition. Time spent 45 min 10/13/2024 Menopausal and female climacteric states (ICD-10 - N95.1) encounter both vgji-bb-ipef and lzh-yqug-ob-fa ce: To prepare for the patient, evaluate the patients condition, and management options. Counted for documenting, reviewing records, labs, sending referral, instructions and disposition. Time spent 45 min 04/13/2025 Migraine without aura and with status migrainosus, not intractable (ICD-10 - G43.001) Migraine Headache: Care Instructions material was published encounter both wzvv-mf-lufk and jib-yjut-aj-fa ce: To prepare for the patient, evaluate the patients condition, and management options. Counted for documenting, reviewing records, labs, sending referral, instructions and disposition. Time spent 45 min 10/13/2024 Encounter for screening for cardiovascular disorders (ICD-10 - Z13.6) encounter both qwak-lx-bgfl and qij-lcdo-tf-fa ce: To prepare for the patient, evaluate [...] Care Instructions material was published encounter both epmu-gt-jxfr and psy-giip-sz-fa ce: To prepare for the patient, evaluate the patients condition, and management options. Counted for documenting, reviewing records, labs, sending referral, instructions and disposition. Time spent 45 min 04/13/2025 Lung nodule (ICD-10 - R91.1) encounter both rqcp-mx-csfq and ozp-qeat-xr-fa ce: To prepare for the patient, evaluate the patients condition, and management options. Counted for documenting, reviewing records, labs, sending referral, instructions and disposition. Time spent 45 min 10/13/2024 Other specified counseling (ICD-10 - Z71.89) encounter both htiq-hb-yvwn and sju-qsuh-db-fa ce: To prepare for the patient, evaluate the patients condition, and management options. Counted for documenting, reviewing records, labs, sending referral, instructions and disposition. Time spent 45 min 10/13/2024 Advanced directives, counseling/discuss ion (ICD-10 - Z71.89) encounter both ohnb-cr-xbpd and qyp-jkdi-dw-fa ce: To prepare for the patient, evaluate the patients condition, and management options. Counted for documenting, reviewing records, labs, sending referral, instructions and disposition. Time spent 45 min 04/13/2025 BMI 26.0-26.9,adult (ICD-10 - Z68.26) encounter both kggo-du-jrve and fpl-ntvb-tt-fa ce: To prepare for the patient, evaluate the patients condition, and management options. Counted for documenting, reviewing records, labs, sending referral, instructions and disposition. Time spent 45 min 10/13/2024 Encounter to discuss test results (ICD-10 - Z71.2) encounter both zstq-cg-ozqa and rrl-aqwu-zv-fa ce: To prepare for the patient, evaluate the patients condition, and management options. Counted for documenting, reviewing records, labs, sending referral, instructions and disposition. Time spent 45 min 10/13/2024 Immunization counseling (ICD-10 - Z71.85) encounter both ltoh-mp-kqlx and voy-cxki-my-fa ce: To prepare for the patient, evaluate the patients condition, and management options. Counted for documenting, reviewing records, labs, sending referral, instructions and disposition. Time spent 45 min 10/13/2024 Screening for osteoporosis (ICD-10 - Z13.820) encounter bot h jlqf-kc-zcjs and bbb-reka-bl-fa ce: To prepare for the patient, evaluate the patients condition, and management options. Counted for documenting, reviewing records, labs, sending referral, instructions and disposition. Time spent 45 min 10/13/2024 Mild intermittent reactive airway disease without complication (ICD-10 - J45.20) stable, no symptoms encounter both bozi-tq-ibpu and bus-hars-yq-fa ce: To prepare for the patient, evaluate [...] Care Instructions material was published encounter both ljgd-du-mysh and iri-ckxp-bl-fa ce: To prepare for the patient, evaluate the patients condition, and management options. Counted for documenting, reviewing records, labs, sending referral, instructions and disposition. Time spent 45 min 10/13/2024 Migraine without aura and with status migrainosus, not intractable (ICD-10 - G43.001) Migraine Headache: Care Instructions material was published encounter both ymtx-sc-dspk and lam-ooas-af-fa ce: To prepare for the patient, evaluate [...] Care Instructions material was published encounter both wjlk-mm-hlyr and fzb-lnrw-kq-fa ce: To prepare for the patient, evaluate the patients condition, and management options. Counted for documenting, reviewing records, labs, sending referral, instructions and disposition. Time spent 45 min 10/13/2024 Lymphocytopenia (ICD-10 - D72.810) encounter bot h jace-iz-fyym and djw-nzto-ib-fa ce: To prepare for the patient, evaluate the patients condition, and management options. Counted for documenting, reviewing records, labs, sending referral, instructions and disposition. Time spent 45 min 10/13/2024 Body mass index 25.0-25.9, adult (ICD-10 - Z68.25) encounter both gbuv-bz-ownp and gau-ccdg-yc-fa ce: To prepare for the patient, evaluate [...] LDL/HDL Ratio 9 Comp. Metabolic Panel (14) 10/23/2019 Comp. Metabolic Panel (14) 04/30/2019 Basic Metabolic Panel (8) 04/30/2019 Vitamin B12 and Folate 11/06/2023 Vitamin B12 and Folate 10/10/2021 Vitamin B12 and Folate 04/13/2025 Vitamin B12 and Folate 01/07/2024 Vitamin B12 and Folate 04/17/2022 Vitamin B12 and Folate 04/10/2024 Vitamin B12 and Folate 10/13/2024 Vitamin B12 and Folate 10/17/2022 Vitamin B12 and Folate 04/17/2023 Uric Acid 04/12/2020 Hemoglobin A1c 10/13/2024 Hemoglobin A1c 04/13/2025 Hemoglobin A1c 11/06/2023 Thyroxine (T4) Free, Direct, S 3 Urinalysis, Routine 04/10/2024 Urinalysis, Complete 10/13/2024 Urinalysis, Complete 04/13/2025 Urinalysis, Complete 04/17/2022 Urinalysis, Complete 10/10/2021 Urinalysis, Complete 04/17/2023 Urinalysis, Complete 11/06/2023 TSH 10/17/2022 TSH 04/17/2023 TSH 10/10/2021 TSH 01/07/2024 TSH 11/06/2023 TSH 10/26/2020 TSH 04/17/2022 TSH 04/13/2025 TSH 10/13/2024 TSH 04/10/2024 CBC With Differential/Platelet 4 CBC With Differential/Platelet 5 CBC With Differential/Platelet 5 CBC With Differential/Platelet 2 CBC With Differential/Platelet 1 CBC With Differential/Platelet 4 CBC With Differential/Platelet 2 CBC With Differential/Platelet 4 CBC With Differential/Platelet 3 CBC With Differential/Platelet 3 Vitamin D, 25-Hydroxy 10/13/2024 Vitamin D, 25-Hydroxy 04/13/2025 Albumin/Creatinine Ratio,Urine 2 Albumin/Creatinine Ratio,Urine 5 Albumin/Creatinine Ratio,Urine 4 Albumin/Creatinine Ratio,Urine 5 Albumin/Creatinine Ratio,Urine 4 Albumin/Creatinine Ratio,Urine 3 Albumin/Creatinine Ratio,Urine 3 Lipid Panel With LDL/HDL Ratio 3 Lipid Panel With LDL/HDL Ratio 3 Lipid Panel With LDL/HDL Ratio 2 Lipid Panel With LDL/HDL Ratio 4 Lipid Panel With LDL/HDL Ratio 2 Lipid Panel With LDL/HDL Ratio 5 Lipid Panel With LDL/HDL Ratio 5 Lipid Panel 10/26/2020 Comp. Metabolic Panel (14) 10/26/2020 Comp. Metabolic Panel (14) 01/07/2024 CMP14+eGFR 04/13/2025 CMP14+eGFR 10/10/2021 CMP14+eGFR 04/17/2022 CMP14+eGFR 10/13/2024 CMP14+eGFR 04/10/2024 CMP14+eGFR 04/17/2023 CMP14+eGFR 11/06/2023 CMP14+eGFR 10/17/2022 LIPID PANEL (REFL) 10/15/2019 IRON, TIBC AND [...] 01:30:00 PM, [address] [place], [address], Insurance Providers Payer Name Payer Address Payer Phone Subscriber Number Group Number Insured Name Patient Relationship to Insured Coverage Start Date Coverage End Date Medicare [employer] [address] [place] [phone] [id number] Cayla Heck Self - patient is the insured [address] [facility] [address] [place] [address] [phone] [id number] Leofide Cayla Self - patient is the [...]
--- OUTSIDE RECORDS SUMMARY | 2025-05-29 11:26 | XMS_ITS | Patient Health Record ---
Author Organization [facility] Address [address] [place] [address] Care Team Providers Care Welt Stitcher Name Role Phone LIN STOREY Unavailable [phone] Allergies No Known Allergies Reason For Referral [...] Notes Problem Dermatochalasis of right upper eyelid (008051621826208) Dermatochalasis of right upper eyelid (H02.831) Active confirmed Problem Dermatochalasis of left upper eyelid (610578465933534) Dermatochalasis of left upper eyelid (H02.834) Active confirmed Problem Impacted cerumen (56691237) Impacted cerumen, left ear (H61.22) Active confirmed Problem Brow ptosis (923012551) Brow ptosis, bilateral (H57.813) Active confirmed Problem Brow ptosis (661340419) Brow ptosis, unspecified (H57.819) Active confirmed Plan Of Treatment No Information Insurance Providers Payer Name Payer Address Payer Phone Subscriber Number Group Number Insured Name Patient Relationship to Insured Coverage Start Date Coverage End Date MEDICARE [place] [employer] [address] [place] [address] [id number] ALLEY SCHWARZ Self - patient is the insured [facility] [address] [place] [address] [phone] [id number] ALLEY SCHWARZ Self - patient is the insured Medical (General) History Medical History History ICD Code Arthritis Esophageal reflux high cholesterol Surgical History Surgery Date(Month/Year) tubal ligation hysterectomy, total with bilateral salpi billy-oopherectomy (BSO) Sacropexy foot surgery
== END 2025-05-29 10:43 | disposition home or self-care (01) ==
LOC: HO.HMCFM 10:07
PROVIDERS: PCP Internal Medicine; Visit Provider Internal Medicine
DX: F41.9 Anxiety disorder, unspecified (principal)

== ENCOUNTER → 2025-05-29 10:07 | Outpatient (BNVA) | payer MEDICARE, SELFPAY | PROVIDERS: PCP Internal Medicine; Visit Provider Internal Medicine | DX: Z09 Encounter for follow-up examination after completed treatment for conditions other than malignant neoplasm (principal); F41.9 Anxiety disorder, unspecified; R10.13 Epigastric pain; M19.041 Primary osteoarthritis, right hand; M19.042 Primary osteoarthritis, left hand; Z79.899 Other long term (current) drug therapy | CPT/HCPCS: 99212 ==